=== PATIENT | female | born 1935 | race Caucasian/White ===

== ENCOUNTER 2016-07-26 16:39 | Inpatient (IN) | payer MEDICARE, MEDICAID ==
[2016-07-26] MEDS ORDERED: NS 0.9% 1000 ML* 2,000 ML IV ONE (16:58)
[2016-07-26] MEDS ORDERED: Piperac/Tazob 3.375 gm in NS* 3.375 GM/100 ML BAG IVPB ONE (17:02)
[2016-07-26] MEDS ORDERED: Levofloxacin 750 MG IVPREMIX(* 750 MG/150 ML BAG IVPB ONE (17:03)
[2016-07-26] MEDS ORDERED: Albuterol/Ipratropium NEB.SOL* Albuterol 2.5 MG/Ipratropium 0.5 MG 3 ML INH ONE (17:03)
[2016-07-26] MEDS ORDERED: methylPREDNISolone SOD SUCC* 125 MG 2 ML VIAL IV ONE (17:04)
[2016-07-26 17:19] LABS: Hematocrit 42 % (35-47); Hemoglobin 13.8 g/dl (12.0-16.0); Mean Corpuscular HGB Conc 33 g/dl (31-36); Mean Corpuscular Hemoglobin 29 pg (27-31); Mean Corpuscular Volume 88 fL (80-97); Mean Platelet Volume 7 um3 (7.4-10.4); Red Blood Count 4.77 10^6/ul (4.0-5.4); Red Cell Distribution Width 17 % (10.5-15)
[2016-07-26 17:37] LABS: Albumin 3.2 g/dL (3.2-5.2); BUN/Creatinine Ratio 30.3 (8-20); C Reactive Protein 29.61 mg/L (< 5.00); Calcium 9.5 mg/dL (8.6-10.3); EGFR African American 93.5 (>60); EGFR Non-African American 72.7 (>60); Globulin 3.6 g/dL (2-4); Potassium 4.7 mmol/L (3.5-5.0); Total Bilirubin 0.4 mg/dL (0.2-1.0); Total Protein 6.8 g/dL (6.4-8.9)
[2016-07-26 17:38] LABS: Troponin I 0.65 ng/mL (<0.04)
--- NOTE | 2016-07-26 17:51 | RAD ---
INDICATION: Short of breath. Aspiration pneumonia. COMPARISON: Chest x-ray August 17, 2015 TECHNIQUE: An AP portable view obtained at 1735 hours is submitted. FINDINGS: Bones/Soft Tissues: There are no acute bony findings. There are old left-sided rib fractures with pleural reactive change Cardiomediastinal: The cardiomediastinal silhouette is normal. Lungs: There are chronic interstitial changes biapical scarring. There are no acute infiltrates Pleura: There are no pleural effusions. Other: None IMPRESSION: CHRONIC LUNG FINDINGS WITH APICAL SCARRING. NO ACTIVE DISEASE.
--- NOTE | 2016-07-26 18:21 | ED ---
Victor Hugo Mendiola Billy, scribed for Helio Lomax MD on 07/26/16 at 1748 . Shortness of Breath - HPI Summary HPI Summary: Patient is an 81 year-old female with a history of COPD coming to [facility] presenting with worsening cough and SOB today. History not obtained from the patient due to dementia, level 5 caveat. Family states that the patient lives at the senior living, where she receives regular breathing treatments three times a day. They report that the patient began to have cold-like symptoms earlier this week. Patient was able to state that her "lungs hurt." Family also reports that the patient aspirated at lunch today. - History of Current Complaint Chief Complaint: EDShortnessOfBreath Time Seen by Provider: 07/26/16 16:49 Hx Obtained From: Family/Day Care Home Provider Hx From Patient Unobtainable Due To: Dementia - Level 5 caveat. Onset/Duration: Gradual Onset, Lasting Days, Worse Since - today Timing: Constant Current Severity: Moderate Dyspnea At: Rest Aggrevating Factors: Nothing Alleviating Factors: Nothing Associated Signs & Symptoms: Cough (Nonproductive) - Allergy/Home Medications Allergies/Adverse Reactions: Allergies Allergy/AdvReac Type Severity Reaction Status Date / Time No Known Allergies Allergy Verified 08/17/15 16:36 Home Medications: Home Medications Acetaminophen SUPP* [Tylenol Supp*] 650 mg PA Q4H PRN 07/26/16 [History Confirmed 07/26/16] Bisacodyl SUPP* [Dulcolax Supp*] 10 mg PA DAILY PRN 07/26/16 [History Confirmed 07/26/16] Budesonide NEB* [Pulmicort NEB*] 0.5 mg INH BID 07/26/16 [History Confirmed 02/03] Cholecalciferol [Vitamin D3] 50,000 unit PO MONTHLY 07/26/16 [History Confirmed 07/26/16] Ipratropium 0.5MG/2.5ML NEB* [Atrovent 0.5 MG NEB.REKHA*] 0.5 mg INH TID PRN 07/26 [History Confirmed 07/26/16] Mirtazapine TAB* [Remeron TAB*] 15 mg PO DAILY 07/26/16 [History Confirmed 07/26] Omeprazole CAP* [Prilosec CAP* 20 MG] 20 mg PO DAILY 07/26/16 [History Confirmed 07/26/16] Ondansetron ODT TAB* [Zofran 4 MG Odt TAB*] 4 mg PO BID PRN 07/26/16 [History Confirmed 07/26/16] Psyllium ANDRES* [Metamucil ANDRES*] 1 pkt PO BID 07/26/16 [History Confirmed 07/26/16 ] Tiotropium CAP.INH* [Spiriva CAP.INH*] 1 cap.inh INH DAILY 07/26/16 [History Confirmed 07/26/16] guaiFENesin ER TAB [Mucinex*] 600 mg PO BID 07/26/16 [History Confirmed 07/26/16 ] PMH/Surg Hx/FS Hx/Imm Hx Respiratory History: Reports: Hx Chronic Obstructive Pulmonary Disease (COPD) - home O2 -- per daughter takes it off, Hx Pneumonia Musculoskeletal History: Reports: Hx Arthritis - in bilat hands Sensory History: Reports: Hx Contacts or Glasses, Hx Hearing Problem - hard of hearing Opthamlomology History: Reports: Hx Contacts or Glasses Neurological History: Reports: Hx Dementia - Cancer History Hx Chemotherapy: No Hx Radiation Therapy: No Hx Palliative Cancer Treatment: No - Surgical History Hx Anesthesia Reactions: No Infectious Disease History: No - Family History Known Family History: Positive: Unknown - Not obtained; level 5 caveat. - Social History Alcohol Use: None Hx Substance Use: No Substance Use Type: Reports: None Hx Tobacco Use: Yes Smoking Status (MU): Former Smoker Type: Cigarettes Amount Used/How Often: 4-5 cigs day Length of Time of Smoking/Using Tobacco: 60 Have You Smoked in the Last Year: No Review of Systems Negative: Fever Positive: Shortness Of Breath, Cough All Other Systems Reviewed And Are Negative: No - Comments Additional Review of Systems Comments: Full ROS not obtained; level 5 caveat. Physical Exam - Summary Physical Exam Summary: The patient is well-nourished in no acute distress and in no acute pain. The skin is warm and dry and skin color reflects adequate perfusion. No cyanosis. Decreased skin turgor. HEENT: The head is normocephalic and atraumatic. The pupils are equal and reactive. The conjunctivae are clear and without drainage. Nares are patent and without drainage. Mouth reveals dry mucous membranes and the throat is without erythema and exudate. The external ears are intact. The ear canals are patent and without drainage. The tympanic membranes are intact. Neck is supple with full range of motion and non-tender. There are no carotid bruits. There is no neck vein distension. Respiratory: Chest is non-tender. Moderate respiratory distress. Decreased breath sounds with diffuse wheezing. O2 sat 92-93%. Supraventricular retractions. Cardiovascular: Heart rate is tachycardic. Positive murmur. There is no peripheral edema and pulses are symmetrical and equal. Abdomen: The abdomen is soft and non-tender. There are normal bowel sounds heard in all four quadrants and there is no organomegaly palpated. Musculoskeletal: There is no back pain noted. Extremities are non-tender with full range of motion. There is good capillary refill <3 seconds. There is no peripheral edema or calf tenderness elicited. Neurological: Patient is alert but not oriented, history of dementia. Psychiatric: Level 5 caveat. Triage Information Reviewed: Yes Vital Signs On Initial Exam: Initial Vitals BP 110/71 07/26/16 16:52 Vital Signs Reviewed: Yes Completion Of Physical Exam Limited Due To: Level 5 - Saw Coma Scale Coma Scale Total: 15 Diagnostics - Vital Signs Vital Signs Temp Pulse Resp BP Pulse Ox 07/26/16 17:30 118 35 123/72 99 07/26/16 17:23 99.3 F 111 34 109/65 92 07/26/16 17:22 91 07/26/16 17:19 99.3 F 111 34 109/65 92 07/26/16 17:17 109 35 93 07/26/16 17:00 111 36 109/65 93 07/26/16 16:53 116 91 07/26/16 16:52 110/71 - Laboratory Lab Results: Lab Results 07/26/16 07/26/16 07/26/16 Range/Units 17:10 17:10 17:10 WBC 15.0 H (3.5-10.8) 10^3/ul RBC 4.77 (4.0-5.4) 10^6/ul Hgb 13.8 (12.0-16.0) g/dl Hct 42 (35-47) % MCV 88 (80-97) fL MCH 29 (27-31) pg MCHC 33 (31-36) g/dl RDW 17 H (10.5-15) % Plt Count 259 (150-450) 10^3/ul MPV 7 L (7.4-10.4) um3 Neut % (Auto) 91.7 H (38-83) % Lymph % (Auto) 1.9 L (25-47) % [place] % (Auto) 6.3 (1-9) % Eos % (Auto) 0 (0-6) % Baso % (Auto) 0.1 (0-2) % Absolute Neuts (auto) 13.7 H (1.5-7.7) 10^3/ul Absolute Lymphs (auto) 0.3 L (1.0-4.8) 10^3/ul Absolute Monos (auto) 0.9 H (0-0.8) 10^3/ul Absolute Eos (auto) 0 (0-0.6) 10^3/ul Absolute Basos (auto) 0 (0-0.2) 10^3/ul Absolute Nucleated RBC 0 10^3/ul Nucleated RBC % 0 INR (Anticoag Therapy) 0.88 L (0.89-1.11) APTT 27.0 (26.0-36.3) seconds Sodium 131 L (133-145) mmol/L Potassium 4.7 (3.5-5.0) mmol/L Chloride 96 L (101-111) mmol/L Carbon Dioxide 29 (22-32) mmol/L Anion Gap 6 (2-11) mmol/L BUN 23 (6-24) mg/dL Creatinine 0.76 (0.51-0.95) mg/dL Est GFR ( Amer) 93.5 (>60) Est GFR (Non-Af Amer) 72.7 (>60) BUN/Creatinine Ratio 30.3 H (8-20) Glucose 168 H (70-100) mg/dL Lactic Acid (0.5-2.0) mmol/L Calcium 9.5 (8.6-10.3) mg/dL Total Bilirubin 0.40 (0.2-1.0) mg/dL AST 16 (13-39) U/L ALT 11 (7-52) U/L Alkaline Phosphatase 109 H (34-104) U/L Troponin I 0.65 H* (<0.04) ng/mL C-Reactive Protein 29.61 H (< 5.00) mg/L B-Natriuretic Peptide ( - 100) pg/mL Total Protein 6.8 (6.4-8.9) g/dL Albumin 3.2 (3.2-5.2) g/dL Globulin 3.6 (2-4) g/dL Albumin/Globulin Ratio 0.9 L (1-3) 07/26/16 07/26/16 Range/Units 17:10 17:10 WBC (3.5-10.8) 10^3/ul RBC (4.0-5.4) 10^6/ul Hgb (12.0-16.0) g/dl Hct (35-47) % MCV (80-97) fL MCH (27-31) pg MCHC (31-36) g/dl RDW (10.5-15) % Plt Count (150-450) 10^3/ul MPV (7.4-10.4) um3 Neut % (Auto) (38-83) % Lymph % (Auto) (25-47) % [place] % (Auto) (1-9) % Eos % (Auto) (0-6) % Baso % (Auto) (0-2) % Absolute Neuts (auto) (1.5-7.7) 10^3/ul Absolute Lymphs (auto) (1.0-4.8) 10^3/ul Absolute Monos (auto) (0-0.8) 10^3/ul Absolute Eos (auto) (0-0.6) 10^3/ul Absolute Basos (auto) (0-0.2) 10^3/ul Absolute Nucleated RBC 10^3/ul Nucleated RBC % INR (Anticoag Therapy) (0.89-1.11) APTT (26.0-36.3) seconds Sodium (133-145) mmol/L Potassium (3.5-5.0) mmol/L Chloride (101-111) mmol/L Carbon Dioxide (22-32) mmol/L Anion Gap (2-11) mmol/L BUN (6-24) mg/dL Creatinine (0.51-0.95) mg/dL Est GFR ( Amer) (>60) Est GFR (Non-Af Amer) (>60) BUN/Creatinine Ratio (8-20) Glucose (70-100) mg/dL Lactic Acid 2.1 H* (0.5-2.0) mmol/L Calcium (8.6-10.3) mg/dL Total Bilirubin (0.2-1.0) mg/dL AST (13-39) U/L ALT (7-52) U/L Alkaline Phosphatase (34-104) U/L Troponin I (<0.04) ng/mL C-Reactive Protein (< 5.00) mg/L B-Natriuretic Peptide 517 H ( - 100) pg/mL Total Protein (6.4-8.9) g/dL Albumin (3.2-5.2) g/dL Globulin (2-4) g/dL Albumin/Globulin Ratio (1-3) Result Diagrams: 07/26/16 17:10 07/26/16 17:10 Lab Statement: Any lab studies that have been ordered have been reviewed, and results considered in the medical decision making process. - Radiology CXR Radiology Interpretation Completed By: Radiologist - CHRONIC LUNG FINDINGS WITH APICAL SCARRING. NO ACTIVE DISEASE. - EKG 1703 Cardiac Rate: Tachycardia - 109 bpm EKG Rhythm: Sinus Tachycardia ST Segment: Normal EKG Interpretation: Artifact. Poor R-wave progression. Re-Evaluation - Re-Evaluation First Eval Re-Evaluation Time: 18:00 Change: Improved Comment: Vitals improved. Discussed options with family. They agree to admit the patient to the hospitalist services. Course/Dx - Course Assessment/Plan: 81 y/o female coming to [facility] presenting with SOB today. CXR shows no acute findings. EKG shows sinus tachycardia, no ST elevation, poor R- wave progression, and artifact. Prior records reviewed. Case discussed with hospitalist, who accepted the patient for admission to their services. - Diagnoses Differential Diagnosis/HQI/PQRI: Positive: Bronchitis, CHF, VT, Pneumonia, Other - aspiration pneumonia, elevated troponin-demand ischemia Provider Diagnoses: Acute dyspnea, Aspiration pneumonia, Sepsis, Elevated troponin - Physician Notifications Discussed Care of Patient With: Dr. Mejia (hospitalist) @ [id number]: accepts admission. - Critical Care Time Critical Care Time: 30-74 min Discharge - Discharge Plan Condition: Stable Disposition: ADMITTED TO [facility] Referrals: Janina Robison MD [Primary Care Provider] - The documentation as recorded by the Victor Hugo baltazar Billy accurately reflects the service I personally performed and the decisions made by me, Helio Lomax MD.
[2016-07-26] MEDS ORDERED: Bisacodyl SUPP* 10 MG SUPP PR PRN (18:41)
[2016-07-26] MEDS ORDERED: Acetaminophen SUPP* 650 MG SUPP PR PRN (18:41)
[2016-07-26] MEDS ORDERED: PROCHLORPERAZINE INJ 5 MG/ML 2 ML VIAL IV PRN (18:44)
[2016-07-26] MEDS ORDERED: Levofloxacin 500 MG IVPREMIX(* 500 MG/100 ML BAG IVPB SCH (19:00)
[2016-07-26] MEDS ORDERED: Aspirin SUPP* 300 MG PR ONE (19:12)
[2016-07-26 20:17] LABS: Urine Bacteria Absent (Absent); Urine Bilirubin Negative (Negative); Urine Glucose 1+(50 mg/dL) (Negative); Urine Nitrite Negative (Negative)
[2016-07-26] MEDS: NS 0.9% 1000 ML* 1,000 ML IV SCH (20:36)
[2016-07-26] MEDS: Heparin VIAL(*) 5000 UNITS/ML VIAL (FIVE THOUSAND) SUBCUT SCH (21:15)
[2016-07-26] MEDS: Albuterol 2.5 MG/3 ML NEB.SOL* (0.083%) INH SCH ×2 (21:51→22:18)
[2016-07-26] MEDS: Budesonide NEB* 0.5 MG/2 ML NEB.SOLN INH SCH (22:18)
--- NOTE | 2016-07-26 23:21 | HP ---
HISTORY AND PHYSICAL: DATE OF ADMISSION: 07/26/16 TIME OF EVALUATION: 6:10 p.m. PRIMARY CARE PROVIDER: Dr. Robison. CHIEF COMPLAINT: "She is coughing a lot" as per daughter. HISTORY OF PRESENT ILLNESS: Ms. Alegria is an 80-year-old lady with past medical history of dementia, COPD, that resides at [facility] and has had cough for a week. Most of the history is obtained from the patient's daughter at bedside due to the patient's dementia. She says the patient started to have sporadic cough 1 week ago and she was being observed at [facility], but since yesterday, this has progressed with shortness of breath, moist cough without expectoration. Today, during lunch, the patient also choked and the daughter feels that she probably aspirated and after that her respiratory status became even worse. The daughter denies fever or chills, but did notice that her mother was weaker. She also describes a problem with constipation including an episode of infection in the past. She states that the patient's appetite is poor, but this is not new to her. PAST MEDICAL HISTORY: 1. Dementia. 2. COPD. 3. Admission in June 2015 with Klebsiella pneumoniae septicemia of unknown source. 4. Episode of urinary retention and citrobacter UTI on the same admission. MEDICATION LIST: 1. Acetaminophen suppository 650 mg per rectum q.4 hours p.r.n. pain or fever. 2. Bisacodyl suppository 10 mg per rectum daily as needed for constipation. 3. Pulmicort nebulizer 0.5 mg b.i.d. 4. Vitamin D3 50,000 units p.o. monthly. 5. Vitamin B12 1000 mcg intramuscular monthly. 6. Mucinex 600 mg p.o. b.i.d. 7. Ipratropium 0.5 mg inhaled t.i.d. as needed for shortness of breath. 8. Mirtazapine 15 mg p.o. daily. 9. Omeprazole 20 mg p.o. daily. 10. Ondansetron ODT 4 mg p.o. b.i.d. as needed for nausea. 11. Metamucil 1 packet p.o. b.i.d. 12. Spiriva 1 capsule inhaled daily. ALLERGIES: No known drug allergy. FAMILY HISTORY: I am unable to obtain from the patient, but was reviewed from the records and is noncontributory. SOCIAL HISTORY: Unable to obtain from the patient, but as per record she is a former smoker. No history of alcohol intake. She currently lives at [facility]. Surrogate decision maker is her daughter, Lilli Loredo, phone number is [phone]. REVIEW OF SYSTEMS: I am unable to obtain due to the patient's dementia. PHYSICAL EXAMINATION GENERAL: The patient is an elderly, frail lady sitting up in the ED stretcher in no acute distress. VITAL SIGNS: Temperature 99.3, heart rate is 115, respiratory rate is 24, O2 saturation was in the 80s in the emergency room, but during my evaluation it was 92% on Vapotherm with a FiO2 of 40% on 40 L, blood pressure is 112/60. HEENT: Pupils are equal. Moist mucous membranes. LUNGS: Breath sounds bilaterally with diffuse rhonchi. CVS: Normal S1, S2. Regular rate and rhythm, tachycardic. ABDOMEN: Soft, nontender, nondistended. Bowel sounds are present. EXTREMITIES: No edema. NEURO: She is alert, awake, and oriented to self and place. She is able to move all four extremities and follow commands. DIAGNOSTIC STUDIES/LAB DATA: The patient had a CBC that showed a WBC of 15, hemoglobin of 13.8, hematocrit 42, platelets of 259 with 91% neutrophils. INR was 0.88. Chemistry showed a sodium of 131, potassium 4.7, chloride of 96, bicarb of 29, BUN of 23, creatinine of 0.76, glucose of 168, lactic acid is 2.1 , calcium 9.5. Total bilirubin of 0.4, AST of 16, ALT of 11, alk phos of 109. Troponin of 0.65. CRP of 29.6. BNP 517. Influenza rapid test was negative. Chest x-ray showed chronic lung findings with apical scarring, but no active disease. EKG done on July 26 at 17:03 shows sinus tachycardia at 109 beats per minute with flat T waves in V5 and V6. Those were new when compared to her prior EKG from June 2015, but at that time, she did have ST depression on those same leads. ASSESSMENT AND PLAN: Ms. Alegria is an 81-year-old lady with past medical history of dementia and chronic obstructive pulmonary disease, who presented to the emergency room with complaints of cough and shortness of breath and found to have sepsis secondary to bronchitis. 1. Sepsis. The patient meets sepsis criteria with tachycardia, tachypnea, and leukocytosis. Her SOFA score is 2 and source appears to be bronchitis. 2. Chronic obstructive pulmonary disease exacerbation secondary to bronchitis. Influenza test was negative. The patient will be continued on levofloxacin. Cultures were already sent. We are going to continue bronchodilators and start steroids. 3. Acute hypoxemic respiratory failure. The patient was hypoxemic in the emergency room and she is now comfortable on Vapotherm at 40 L with FiO2 of 40% with oxygen saturation of 92% to 93%. She will be admitted to the intensive care unit for further management. 4. Elevated troponin. This likely represents increased demand in the setting of sepsis. The patient denies chest pain and she has minimal changes on her EKG. I am going to check an echocardiogram to look for wall motion abnormalities and we are going to trend her troponins. The patient is going to receive one dose of aspirin per rectum tonight, but if she is able to swallow in the morning, then we can switch her to oral aspirin. 5. Possible dysphagia. The patient's daughter described that she is on mechanical soft diet, but today she choked during lunch and probably aspirating. I am going to keep her n.p.o., no oral medications for now, and she will be seen by Speech Pathology in the morning. 6. Constipation. We will continue Dulcolax suppository as needed. 7. Code status. Discussed with the daughter. The patient is a do not resuscitate, do not intubate, and the MOLST form is in her chart. 8. DVT prophylaxis. The patient has a score of 3 on the DVT Prophylaxis Risk Assessment Guide, and she will be started on subcutaneous heparin. TIME SPENT: Approximately 60 minutes was spent with the patient and daughter interview, medical records review, physical examination to complete the admission; more than half of this time was spent [id number] with the patient and coordination of care. CC: Dr. Robison * [id number]/CPS #: [id number] KIERA
[2016-07-27] MEDS: Albuterol 2.5 MG/3 ML NEB.SOL* (0.083%) INH SCH ×6 (03:32→23:06)
[2016-07-27] MEDS: methylPREDNISolone SOD SUCC* 40 MG/ML VIAL IV SCH ×2 (05:36→16:09)
[2016-07-27] MEDS: Heparin VIAL(*) 5000 UNITS/ML VIAL (FIVE THOUSAND) SUBCUT SCH ×2 (05:36→13:43)
[2016-07-27] MEDS: NS 0.9% 1000 ML* 1,000 ML IV SCH (05:36)
[2016-07-27 06:02] LABS: Hematocrit 34 % (35-47); Hemoglobin 11.6 g/dl (12.0-16.0); Mean Corpuscular HGB Conc 34 g/dl (31-36); Mean Corpuscular Hemoglobin 30 pg (27-31); Mean Corpuscular Volume 88 fL (80-97); Mean Platelet Volume 7 um3 (7.4-10.4); Red Cell Distribution Width 16 % (10.5-15); White Blood Count 10.7 10^3/ul (3.5-10.8)
[2016-07-27 06:24] LABS: BUN/Creatinine Ratio 29.4 (8-20); Calcium 8.7 mg/dL (8.6-10.3); EGFR African American 106.3 (>60); EGFR Non-African American 82.6 (>60); Potassium 4.5 mmol/L (3.5-5.0)
[2016-07-27] MEDS: Budesonide NEB* 0.5 MG/2 ML NEB.SOLN INH SCH ×2 (08:34→19:44)
[2016-07-27] MEDS: Tiotropium CAP.INH* CAP.INH/18 MCG INH SCH (08:34)
[2016-07-27] MEDS ORDERED: Spiriva Inhaler DEVICE* 1 EACH DEVICE INH ONE (09:00)
[2016-07-27] MEDS ORDERED: NS 0.9% 1000 ML* 1,000 ML IV SCH (09:05)
--- NOTE | 2016-07-27 09:13 | PN ---
Subjective Date of Service: 07/27/16 Interval History: pt's MS appears at baseline. Dementia. Limited verbalization to a few words at at a time. stated that daughter present in the room was her mother. Objective Active Medications: Acetaminophen (Tylenol Supp*) 650 mg [place] Q4H PRN PRN Reason: FEVER/PAIN Albuterol (Ventolin 2.5 Mg/3 Ml Neb.Janette*) 2.5 mg INH Q4H [facility] Last Admin: 07/27/16 08:34 Dose: 2.5 mg Bisacodyl (Dulcolax Supp*) 10 mg [place] DAILY PRN PRN Reason: CONSTIPATION Budesonide (Pulmicort Neb*) 0.5 mg INH BID [facility] Last Admin: 07/27/16 08:34 Dose: 0.5 mg Heparin Sodium (Porcine) (Heparin Vial(*)) 5,000 units SUBCUT Q8HR [facility] Last Admin: 07/27/16 05:36 Dose: 5,000 units Levofloxacin/Dextrose (Levaquin 500 Mg Ivpremix(*)) 500 mg in 100 mls @ 100 mls /hr IVPB Q24H [facility] Sodium Chloride (Ns 0.9% 1000 Ml*) 1,000 mls @ 80 mls/hr IV PER RATE [facility] Methylprednisolone Sodium Succinate (Solu-Medrol*) 40 mg IV Q12H [facility] Last Admin: 07/27/16 05:36 Dose: 40 mg Prochlorperazine Edisylate (Compazine Inj*) 5 mg IV Q6H PRN PRN Reason: NAUSEA/VOMITING Tiotropium [place] (Spiriva Cap.Inh*) 1 cap INH DAILY [facility] Last Admin: 07/27/16 08:34 Dose: 1 cap Vital Signs 07/26/16 07/26/16 07/26/16 18:30 19:00 19:30 Temperature Pulse Rate 99 Respiratory 27 24 27 Rate Blood Pressure 112/60 103/56 99/57 (mmHg) O2 Sat by Pulse 80 Oximetry 07/26/16 07/26/16 07/26/16 20:00 20:03 20:09 Temperature 99.8 F 100.3 F Pulse Rate 98 126 Respiratory 24 22 32 Rate Blood Pressure 108/68 108/68 (mmHg) O2 Sat by Pulse 96 Oximetry 03/09/17 03/09/17 03/09/17 20:30 21:00 21:15 Temperature 99.8 F Pulse Rate 110 105 103 Respiratory 36 29 26 Rate Blood Pressure 128/70 99/62 98/48 (mmHg) O2 Sat by Pulse 97 94 96 Oximetry 07/26/16 07/26/16 07/26/16 21:31 21:45 22:00 Temperature Pulse Rate 100 100 99 Respiratory 20 21 19 Rate Blood Pressure 89/48 94/49 89/53 (mmHg) O2 Sat by Pulse 95 96 97 Oximetry 07/26/16 07/26/16 07/26/16 22:15 22:30 22:46 Temperature Pulse Rate 100 97 96 Respiratory 14 17 28 Rate Blood Pressure 86/54 93/50 90/48 (mmHg) O2 Sat by Pulse 96 97 95 Oximetry 07/26/16 07/26/16 07/26/16 22:50 23:00 23:01 Temperature Pulse Rate 96 96 Respiratory 25 20 24 Rate Blood Pressure 86/53 85/54 (mmHg) O2 Sat by Pulse 96 97 Oximetry 07/26/16 07/26/16 07/26/16 23:15 23:30 23:45 Temperature Pulse Rate 95 98 92 Respiratory 21 16 23 Rate Blood Pressure 94/60 94/59 88/56 (mmHg) O2 Sat by Pulse 97 98 96 Oximetry 07/27/16 07/27/16 07/27/16 00:00 00:01 00:15 Temperature 98.4 F Pulse Rate 95 95 Respiratory 20 18 21 Rate Blood Pressure 82/61 97/54 (mmHg) O2 Sat by Pulse 97 97 Oximetry 07/27/16 07/27/16 07/27/16 00:30 01:00 01:55 Temperature Pulse Rate 89 Respiratory 18 20 Rate Blood Pressure 105/65 106/56 (mmHg) O2 Sat by Pulse 96 Oximetry 07/27/16 07/27/16 07/27/16 02:00 03:00 03:02 Temperature Pulse Rate 91 88 Respiratory 21 20 22 Rate Blood Pressure 92/50 84/56 (mmHg) O2 Sat by Pulse 97 93 Oximetry 07/27/16 07/27/16 07/27/16 03:32 04:00 05:00 Temperature 98.3 F Pulse Rate 89 87 Respiratory 26 19 20 Rate Blood Pressure 88/68 (mmHg) O2 Sat by Pulse 94 94 Oximetry 07/27/16 07/27/16 07/27/16 05:16 05:48 06:00 Temperature Pulse Rate 91 85 Respiratory 22 20 13 Rate Blood Pressure 98/56 104/53 (mmHg) O2 Sat by Pulse 95 96 Oximetry 07/27/16 07/27/16 07/27/16 07:00 07:51 07:57 Temperature 99.6 F Pulse Rate 84 Respiratory 20 17 Rate Blood Pressure 95/52 (mmHg) O2 Sat by Pulse 95 Oximetry 07/27/16 07/27/16 08:00 08:39 Temperature Pulse Rate 82 82 Respiratory 19 12 Rate Blood Pressure 98/46 (mmHg) O2 Sat by Pulse 95 96 Oximetry Oxygen Devices in Use Now: High Flow Nasal Cannula - at 40 L flow, 30% Fi02. Appearance: 81 yo F in nAd, alert, disoriented Eyes: No Scleral Icterus, PERRLA Ears/Nose/Mouth/Throat: NL Teeth, Lips, Gums, Mucous Membranes Moist Neck: NL Appearance and Movements; NL JVP, Trachea Midline Respiratory: Symmetrical Chest Expansion and Respiratory Effort, - - crackles at b/l bases Cardiovascular: NL Sounds; No Murmurs; No JVD, RRR Abdominal: - - distended, tympanic, soft, NT, BS+ Lymphatic: No Cervical Adenopathy Extremities: No Edema, No Clubbing, Cyanosis Skin: No Rash or Ulcers, No Nodules or Sclerosis Neurological: - - no focal deficit, limited verbalization due to dementia Result Diagrams: 07/27/16 05:43 07/27/16 05:43 Additional Lab and Data: Lab Results 07/26/16 07/26/16 07/26/16 Range/Units 17:10 17:10 17:10 WBC 15.0 H (3.5-10.8) 10^3/ul RBC 4.77 (4.0-5.4) 10^6/ul Hgb 13.8 (12.0-16.0) g/dl Hct 42 (35-47) % MCV 88 (80-97) fL MCH 29 (27-31) pg MCHC 33 (31-36) g/dl RDW 17 H (10.5-15) % Plt Count 259 (150-450) 10^3/ul MPV 7 L (7.4-10.4) um3 Neut % (Auto) 91.7 H (38-83) % Lymph % (Auto) 1.9 L (25-47) % [place] % (Auto) 6.3 (1-9) % Eos % (Auto) 0 (0-6) % Baso % (Auto) 0.1 (0-2) % Absolute Neuts (auto) 13.7 H (1.5-7.7) 10^3/ul Absolute Lymphs (auto) 0.3 L (1.0-4.8) 10^3/ul Absolute Monos (auto) 0.9 H (0-0.8) 10^3/ul Absolute Eos (auto) 0 (0-0.6) 10^3/ul Absolute Basos (auto) 0 (0-0.2) 10^3/ul Absolute Nucleated RBC 0 10^3/ul Nucleated RBC % 0 INR (Anticoag Therapy) 0.88 L (0.89-1.11) APTT 27.0 (26.0-36.3) seconds Sodium 131 L (133-145) mmol/L Potassium 4.7 (3.5-5.0) mmol/L Chloride 96 L (101-111) mmol/L Carbon Dioxide 29 (22-32) mmol/L Anion Gap 6 (2-11) mmol/L BUN 23 (6-24) mg/dL Creatinine 0.76 (0.51-0.95) mg/dL Est GFR ( Amer) 93.5 (>60) Est GFR (Non-Af Amer) 72.7 (>60) BUN/Creatinine Ratio 30.3 H (8-20) Glucose 168 H (70-100) mg/dL Lactic Acid (0.5-2.0) mmol/L Calcium 9.5 (8.6-10.3) mg/dL Total Bilirubin 0.40 (0.2-1.0) mg/dL AST 16 (13-39) U/L ALT 11 (7-52) U/L Alkaline Phosphatase 109 H (34-104) U/L Troponin I 0.65 H* (<0.04) ng/mL C-Reactive Protein 29.61 H (< 5.00) mg/L B-Natriuretic Peptide ( - 100) pg/mL Total Protein 6.8 (6.4-8.9) g/dL Albumin 3.2 (3.2-5.2) g/dL Globulin 3.6 (2-4) g/dL Albumin/Globulin Ratio 0.9 L (1-3) 07/26/16 07/26/16 Range/Units 17:10 17:10 WBC (3.5-10.8) 10^3/ul RBC (4.0-5.4) 10^6/ul Hgb (12.0-16.0) g/dl Hct (35-47) % MCV (80-97) fL MCH (27-31) pg MCHC (31-36) g/dl RDW (10.5-15) % Plt Count (150-450) 10^3/ul MPV (7.4-10.4) um3 Neut % (Auto) (38-83) % Lymph % (Auto) (25-47) % [place] % (Auto) (1-9) % Eos % (Auto) (0-6) % Baso % (Auto) (0-2) % Absolute Neuts (auto) (1.5-7.7) 10^3/ul Absolute Lymphs (auto) (1.0-4.8) 10^3/ul Absolute Monos (auto) (0-0.8) 10^3/ul Absolute Eos (auto) (0-0.6) 10^3/ul Absolute Basos (auto) (0-0.2) 10^3/ul Absolute Nucleated RBC 10^3/ul Nucleated RBC % INR (Anticoag Therapy) (0.89-1.11) APTT (26.0-36.3) seconds Sodium (133-145) mmol/L Potassium (3.5-5.0) mmol/L Chloride (101-111) mmol/L Carbon Dioxide (22-32) mmol/L Anion Gap (2-11) mmol/L BUN (6-24) mg/dL Creatinine (0.51-0.95) mg/dL Est GFR ( Amer) (>60) Est GFR (Non-Af Amer) (>60) BUN/Creatinine Ratio (8-20) Glucose (70-100) mg/dL Lactic Acid 2.1 H* (0.5-2.0) mmol/L Calcium (8.6-10.3) mg/dL Total Bilirubin (0.2-1.0) mg/dL AST (13-39) U/L ALT (7-52) U/L Alkaline Phosphatase (34-104) U/L Troponin I (<0.04) ng/mL C-Reactive Protein (< 5.00) mg/L B-Natriuretic Peptide 517 H ( - 100) pg/mL Total Protein (6.4-8.9) g/dL Albumin (3.2-5.2) g/dL Globulin (2-4) g/dL Albumin/Globulin Ratio (1-3) Microbiology and Other Data: Microbiology 07/26/16 18:16 Nasal Screen MRSA (PCR)(FAY) - Final Nasal Mrsa Negative 07/26/16 18:16 Influenza Types A,B Antigen (FAY) - Final Nasal Specimen received for Influenza A/B Molecular testing Assess/Plan/Problems-Billing Assessment: 81 yo F with h/o dementia presents with h/o cough worsened by an episode of chocking during meal - Patient Problems (1) Aspiration into airway Comment: with sepsis and SOFA score of 2 at admission suspect aspiration pneumonia, although CXR showed no infiltrate. Will add Flagyl, cont Levaquin. (2) COPD exacerbation Comment: cont solu Medrol, still with significant acute hypoxemic respiratory failure due to aspiration and COPD exacerbation. (3) Dementia Comment: MS at baseline, disoriented (4) Dysphagia Comment: passed swallow eval for thin liquids and mech soft solids (5) DVT prophylaxis Comment: heparin sc (6) DNR (do not resuscitate)
[2016-07-27] MEDS: metroNIDAZOLE IV 500 MG/100ML* 500 MG/100 ML BAG IVPB SCH ×2 (09:51→18:05)
--- NOTE | 2016-07-27 11:48 | ECHO ---
Patient: ANN TAVARES [facility] Rec#: [id number] : 1935 Date: 07/27/2016 Age: 81y Height: 162.6 cm / 64.0 in Weight: 48.1 kg / 106.0 lbs Sex: F BSA: 1.5 Room#: ICU 2 Admit Date#: 07/26/2016 Type: Inpatient Referring: Dana Rader MD Reading: Nikita Jones MD Manager Data Warehousing: Amarilis Burton RN RDCS CC: Janina Robison Transthoracic Echocardiogram Indication: Shortness of breath, elevated troponin levels BP: 98/46 HR: 80 Rhythm: NSR Findings History: COPD, former smoker, hip fracture, dementia, pneumonia Technical Comments: The study is technically limited due to the patient's history of COPD. The study is technically limited due to the patient's smoking history. The study was technically limited due to the patient's inability to lay in the left lateral decubitus position. Completed at 0930. Left Ventricle: The left ventricular chamber size is decreased. Septal wall hypertrophy is observed. Global left ventricular wall motion and contractility are within normal limits. The left ventricle appears hyperdynamic.Mild increase in LVOT and aortic velocities c/w the hyperdynamic state. Mild turbulence in the LVOT and chordal LUCIA but no significant obstruction. The LV is relatively small and may be underfilled. The estimated ejection fraction is greater than 65%. Abnormal left ventricular diastolic filling is observed, consistent with impaired relaxation. Left Atrium: The left atrial chamber size is normal. Right Ventricle: The right ventricle wall thickness is mildly increased. The right ventricular cavity size is normal. The right ventricular global systolic function is normal. Right Atrium: The right atrial cavity size is normal. Aortic Valve: The aortic valve structure is not well visualized. The aortic valve leaflets are mildly thickened. There is no evidence of aortic regurgitation. There is no evidence of aortic stenosis. Mitral Valve: The mitral valve leaflets are mildly thickened. There is mild mitral regurgitation. There is no evidence of mitral stenosis. Tricuspid Valve: The tricuspid valve leaflets are normal. There is mild to moderate tricuspid regurgitation. There is evidence of mild to moderate pulmonary hypertension. There is no tricuspid stenosis. Pulmonic Valve: The pulmonic valve structure is not well visualized. There is a trace pulmonic regurgitation. There is no pulmonic stenosis. Pericardium: There is no significant pericardial effusion. Aorta: There is no dilatation of the ascending aorta. The aortic arch is not well visualized. The aortic root is normal in size. Pulmonary Artery: The main pulmonary artery is not well visualized. Venous: The inferior vena cava appears normal in size. There is an approximate 50% respiratory change in the inferior vena cava dimension. Summary: There was not any prior study for comparison. Conclusions The study was technically limited due to the patient's inability to lay in the left lateral decubitus position. The left ventricle appears hyperdynamic.Mild increase in LVOT and aortic velocities c/w the hyperdynamic state. Mild turbulence in the LVOT and chordal LUCIA but no significant obstruction. The LV is relatively small and may be underfilled. The estimated ejection fraction is greater than 65%. Abnormal left ventricular diastolic filling is observed, consistent with impaired relaxation. The right ventricle wall thickness is mildly increased. There is mild mitral regurgitation. There is mild to moderate tricuspid regurgitation. There is evidence of mild to moderate pulmonary hypertension. Measurements Name Value Normal Range RVDdMajor (2D) 2.2 cm (2.2 - 4.4) RVAW (2D) 0.6 cm (0.2 - 0.5) RAd ISD 4CH 4.2 cm (3.4 - 4.9) RA (A4C)W 2.9 cm (2.9 - 4.6) IVSd (2D) 1.1 cm (0.6 - 1) LVPWd (2D) 1 cm (0.6 - 1) LVIDd (2D) 3.2 cm (3.6 - 5.4) LVIDs (2D) 2.3 cm - LV FS (2D) 28 % (25 - 45) Aortic Annulus 1.6 cm (1.4 - 2.6) Ao root diameter (2D) 2.7 cm (2.1 - 3.5) Ascending Ao 2.4 cm (2.1 - 3.4) LA dimension (AP) 2D 2.3 cm (2.3 - 3.8) LAd ISD 4CH 4.7 cm (2.9 - 5.3) LA ISD 4CH W 2.8 cm (2.5 - 4.5) Name Value Normal Range LA ESV SP 4CH (A/L) 30 ml - LA ESV SP 2CH (A/L) 25 ml - LA ESV BP (A/L) 28 ml - LA ESV BP (A/L) index 19 ml/m2 - LA ESV SP 4CH (MOD) 28 ml - LA ESV SP 2CH (MOD) 24 ml - Name Value Normal Range MV E-wave Vmax 0.73 m/sec - MV deceleration time 298 msec - MV A-wave Vmax 1.2 m/sec - MV E:A ratio 0.6 ratio - LV septal e' Vmax 0.9 m/sec - LV lateral e' Vmax 0.7 m/sec - LV E:e' septal ratio 8.1 ratio - LV E:e' lateral ratio 10.4 ratio - Name Value Normal Range AV Vmax 1.4 m/sec - AV VTI 31.4 cm - AV peak gradient 8 mmHg - AV mean gradient 5 mmHg - LVOT Vmax 1.3 m/sec - LVOT VTI 26.8 cm - LVOT peak gradient 6 mmHg - LVOT mean gradient 4 mmHg - Name Value Normal Range TR Vmax 3.1 m/sec - TR peak gradient 38 mmHg - RAP 8 mmHg - RVSP 46 mmHg - IVC diameter 1.9 cm - Name Value Normal Range PV Vmax 0.76 m/sec -
[2016-07-27] MEDS: Levofloxacin 500 MG IVPREMIX(* 500 MG/100 ML BAG IVPB SCH (17:06)
[2016-07-28] MEDS: Heparin VIAL(*) 5000 UNITS/ML VIAL (FIVE THOUSAND) SUBCUT SCH ×4 (00:03→21:40)
[2016-07-28] MEDS: metroNIDAZOLE IV 500 MG/100ML* 500 MG/100 ML BAG IVPB SCH ×3 (03:37→19:30)
[2016-07-28] MEDS: Albuterol 2.5 MG/3 ML NEB.SOL* (0.083%) INH SCH ×5 (05:15→19:21)
[2016-07-28 05:28] LABS: Hematocrit 34 % (35-47); Hemoglobin 11.3 g/dl (12.0-16.0); Mean Corpuscular HGB Conc 33 g/dl (31-36); Mean Corpuscular Hemoglobin 29 pg (27-31); Mean Corpuscular Volume 89 fL (80-97); Mean Platelet Volume 7 um3 (7.4-10.4); Red Blood Count 3.83 10^6/ul (4.0-5.4); Red Cell Distribution Width 17 % (10.5-15); White Blood Count 9.2 10^3/ul (3.5-10.8)
[2016-07-28 05:44] LABS: BUN/Creatinine Ratio 32.2 (8-20); Calcium 8.8 mg/dL (8.6-10.3); EGFR African American 125.2 (>60); EGFR Non-African American 97.3 (>60); Potassium 4.1 mmol/L (3.5-5.0)
[2016-07-28] MEDS: methylPREDNISolone SOD SUCC* 40 MG/ML VIAL IV SCH ×2 (05:57→19:13)
[2016-07-28] MEDS: Budesonide NEB* 0.5 MG/2 ML NEB.SOLN INH SCH ×2 (07:17→19:21)
[2016-07-28] MEDS: Tiotropium CAP.INH* CAP.INH/18 MCG INH SCH (07:17)
--- NOTE | 2016-07-28 14:08 | PN ---
Subjective Date of Service: 07/28/16 Interval History: HOSPITALIST PROGRESS NOTE Patient seen and examined at bedside. She feels better today. Less dyspnea, moist cough still present, but unable to expectorate. Has been on RA this AM. Family History: Unchanged from Admission Social History: Unchanged from Admission Past Medical History: Unchanged from Admission Objective Active Medications: Acetaminophen (Tylenol Supp*) 650 mg [place] Q4H PRN PRN Reason: FEVER/PAIN Albuterol (Ventolin 2.5 Mg/3 Ml Neb.Janette*) 2.5 mg INH Q6H [facility] Last Admin: 07/28/16 12:52 Dose: 2.5 mg Bisacodyl (Dulcolax Supp*) 10 mg [place] DAILY PRN PRN Reason: CONSTIPATION Budesonide (Pulmicort Neb*) 0.5 mg INH BID [facility] Last Admin: 07/28/16 07:17 Dose: 0.5 mg Heparin Sodium (Porcine) (Heparin Vial(*)) 5,000 units SUBCUT Q8HR [facility] Last Admin: 07/28/16 05:57 Dose: 5,000 units Levofloxacin/Dextrose (Levaquin 500 Mg Ivpremix(*)) 500 mg in 100 mls @ 100 mls /hr IVPB Q24H [facility] Last Admin: 07/27/16 17:06 Dose: 100 mls/hr Metronidazole/Sodium Chloride (Flagyl 500 Mg Ivpb*) 500 mg in 100 mls @ 100 mls /hr IVPB Q8H [facility] Last Admin: 07/28/16 09:20 Dose: 100 mls/hr Methylprednisolone Sodium Succinate (Solu-Medrol*) 40 mg IV Q12H [facility] Last Admin: 07/28/16 05:57 Dose: 40 mg Prochlorperazine Edisylate (Compazine Inj*) 5 mg IV Q6H PRN PRN Reason: NAUSEA/VOMITING Tiotropium [place] (Spiriva Cap.Inh*) 1 cap INH DAILY [facility] Last Admin: 07/28/16 07:17 Dose: 1 cap Vital Signs 07/28/16 07/28/16 07/28/16 11:34 12:00 12:55 Temperature 98.3 F Pulse Rate 77 79 Respiratory 20 18 Rate Blood Pressure 94/52 (mmHg) O2 Sat by Pulse 93 92 Oximetry Oxygen Devices in Use Now: None Appearance: Pleasantly confused elderly lady sitting up in bed in NAD. Eyes: No Scleral Icterus Ears/Nose/Mouth/Throat: Mucous Membranes Moist Neck: Trachea Midline Respiratory: Symmetrical Chest Expansion and Respiratory Effort, - - BS+ bilaterally with scattered rhonchi Cardiovascular: RRR - Normal S1 and S2 Abdominal: NL Sounds; No Tenderness; No Distention Extremities: No Edema Neurological: - - AAOx1 (self), DEL TORO Lines/Tubes/Other Access: Clean, Dry and Intact Peripheral IV Nutrition: Taking PO's Result Diagrams: 07/28/16 05:14 07/28/16 05:14 Assess/Plan/Problems-Billing Assessment: Mrs. Alegria is an 81 yo F with PMH of dementia, COPD, who presented to ED with h/o cough worsened by an episode of choking during meal. - Patient Problems (1) Sepsis Comment: - Present on admission. - Sepsis criteria included tachycardia, tachypnea, and leukocytosis. SOFA score was 2. - Resolved. (2) Acute hypoxemic respiratory failure Comment: - Secondary to bronchitis. - Initially required Vapotherm, but has been on RA today with good SO2. (3) Bronchitis Comment: - Likely started as a viral infection and progressed with a bacterial one. - Responding well to Levofloxacin and Metronidazole. - Continue steroids and bronchodilators. (4) Aspiration into airway Code(s): T17.908A - UNSP FB IN RESP TRACT, PART UNSP CAUSING OTH INJURY, INIT SNOMED Code(s): 917036082 Comment: - Patient choked on food prior to admission and likely has a component of aspiration pneumonitis, but not necessarily pneumonia. - Continue steroids and antibiotics. (5) COPD exacerbation Comment: - Secondary to above. - Continue steroids and bronchodilators. (6) Dysphagia Comment: - Passed swallow eval - continue thin liquids and mech soft solids. (7) Elevated troponin Comment: - Secondary to demand ischemia associated with sepsis. - Echo showed EF>65% and hyperdynamic LV (likely secondary to dehydration). (8) Dementia Comment: - MS at baseline - continue supportive care. (9) DVT prophylaxis Comment: - SQ heparin. (10) DNR (do not resuscitate) Status and Disposition: Inpatient. Transfer to medical floor. Daughter updated at bedside.
[2016-07-28] MEDS: Levofloxacin 500 MG IVPREMIX(* 500 MG/100 ML BAG IVPB SCH (19:00)
[2016-07-29] MEDS: Albuterol 2.5 MG/3 ML NEB.SOL* (0.083%) INH SCH ×4 (00:52→19:25)
[2016-07-29] MEDS: metroNIDAZOLE IV 500 MG/100ML* 500 MG/100 ML BAG IVPB SCH ×3 (04:07→19:08)
[2016-07-29] MEDS: methylPREDNISolone SOD SUCC* 40 MG/ML VIAL IV SCH ×2 (06:39→17:42)
[2016-07-29] MEDS: Heparin VIAL(*) 5000 UNITS/ML VIAL (FIVE THOUSAND) SUBCUT SCH ×3 (06:39→21:55)
[2016-07-29] MEDS: Tiotropium CAP.INH* CAP.INH/18 MCG INH SCH (07:13)
[2016-07-29] MEDS: Budesonide NEB* 0.5 MG/2 ML NEB.SOLN INH SCH ×2 (07:14→19:25)
--- NOTE | 2016-07-29 14:49 | PN ---
Subjective Date of Service: 07/29/16 Interval History: HOSPITALIST PROGRESS NOTE Patient seen and examined at bedside. She offers on complaints, denies dyspnea. Moist cough still present, unable to expectorate. Family History: Unchanged from Admission Social History: Unchanged from Admission Past Medical History: Unchanged from Admission Objective Active Medications: Acetaminophen (Tylenol Supp*) 650 mg [place] Q4H PRN PRN Reason: FEVER/PAIN Albuterol (Ventolin 2.5 Mg/3 Ml Neb.Janette*) 2.5 mg INH Q6H [facility] Last Admin: 07/29/16 13:05 Dose: 2.5 mg Bisacodyl (Dulcolax Supp*) 10 mg [place] DAILY PRN PRN Reason: CONSTIPATION Budesonide (Pulmicort Neb*) 0.5 mg INH BID [facility] Last Admin: 07/29/16 07:14 Dose: 0.5 mg Heparin Sodium (Porcine) (Heparin Vial(*)) 5,000 units SUBCUT Q8HR [facility] Last Admin: 07/29/16 06:39 Dose: 5,000 units Levofloxacin/Dextrose (Levaquin 500 Mg Ivpremix(*)) 500 mg in 100 mls @ 100 mls /hr IVPB Q24H [facility] Last Admin: 07/28/16 19:00 Dose: 100 mls/hr Metronidazole/Sodium Chloride (Flagyl 500 Mg Ivpb*) 500 mg in 100 mls @ 100 mls /hr IVPB Q8H [facility] Last Admin: 07/29/16 11:04 Dose: 100 mls/hr Methylprednisolone Sodium Succinate (Solu-Medrol*) 40 mg IV Q12H [facility] Last Admin: 07/29/16 06:39 Dose: 40 mg Prochlorperazine Edisylate (Compazine Inj*) 5 mg IV Q6H PRN PRN Reason: NAUSEA/VOMITING Tiotropium [place] (Spiriva Cap.Inh*) 1 cap INH DAILY [facility] Last Admin: 07/29/16 07:13 Dose: 1 cap Vital Signs 07/29/16 07/29/16 07/29/16 00:00 00:52 04:00 Temperature 98 F 97.8 F Pulse Rate 79 80 Respiratory 22 Rate Blood Pressure 112/57 (mmHg) O2 Sat by Pulse 98 95 Oximetry 07/29/16 07/29/16 07/29/16 07:16 08:00 13:08 Temperature 100.0 F Pulse Rate 77 78 Respiratory 17 18 17 Rate Blood Pressure (mmHg) O2 Sat by Pulse 97 96 97 Oximetry Oxygen Devices in Use Now: None Appearance: Pleasantly confused lady lying in bed in NAD. Eyes: No Scleral Icterus Ears/Nose/Mouth/Throat: Mucous Membranes Moist Neck: Trachea Midline Respiratory: Symmetrical Chest Expansion and Respiratory Effort, - - BS+ bilaterally coarse with no added sounds Cardiovascular: RRR - Normal S1 and S2 Abdominal: NL Sounds; No Tenderness; No Distention Extremities: No Edema Neurological: - - AAOx1 (self), [place] Lines/Tubes/Other Access: Clean, Dry and Intact Peripheral IV Nutrition: Taking PO's Result Diagrams: 07/28/16 05:14 07/28/16 05:14 Assess/Plan/Problems-Billing Assessment: Mrs. Alegria is an 81 yo F with PMH of dementia, COPD, who presented to ED with h/o cough worsened by an episode of choking during meal. - Patient Problems (1) Sepsis Comment: - Present on admission. - Sepsis criteria included tachycardia, tachypnea, and leukocytosis. SOFA score was 2. - Resolved. (2) Acute hypoxemic respiratory failure Comment: - Secondary to bronchitis. - Initially required Vapotherm, but continues to be on RA today with good SO2. (3) Bronchitis Comment: - Likely started as a viral infection and progressed with a bacterial one. - Responding well to Levofloxacin and Metronidazole. - Continue steroids and bronchodilators. (4) Aspiration into airway Code(s): T17.908A - UNSP FB IN RESP TRACT, PART UNSP CAUSING OTH INJURY, INIT SNOMED Code(s): 716337540 Comment: - Patient choked on food prior to admission and likely has a component of aspiration pneumonitis, but not necessarily pneumonia. - Continue steroids and antibiotics. (5) COPD exacerbation Comment: - Secondary to above. - Continue steroids and bronchodilators. (6) Dysphagia Comment: - Passed swallow eval - continue thin liquids and mech soft solids. (7) Elevated troponin Comment: - Secondary to demand ischemia associated with sepsis. - Echo showed EF>65% and hyperdynamic LV (likely secondary to dehydration). (8) Dementia Comment: - MS at baseline - continue supportive care. (9) DVT prophylaxis Comment: - SQ heparin. (10) DNR (do not resuscitate) Status and Disposition: Inpatient. Still in ICU as MOF. Anticipate d/c in the next 1-2 days.
[2016-07-29] MEDS: Levofloxacin 500 MG IVPREMIX(* 500 MG/100 ML BAG IVPB SCH (17:42)
[2016-07-30] MEDS: metroNIDAZOLE IV 500 MG/100ML* 500 MG/100 ML BAG IVPB SCH ×3 (02:12→19:41)
[2016-07-30] MEDS: Albuterol 2.5 MG/3 ML NEB.SOL* (0.083%) INH SCH ×4 (04:42→19:48)
[2016-07-30] MEDS: Heparin VIAL(*) 5000 UNITS/ML VIAL (FIVE THOUSAND) SUBCUT SCH ×3 (05:56→21:45)
[2016-07-30] MEDS: Budesonide NEB* 0.5 MG/2 ML NEB.SOLN INH SCH ×2 (07:45→19:48)
[2016-07-30] MEDS: Tiotropium CAP.INH* CAP.INH/18 MCG INH SCH (07:45)
[2016-07-30] MEDS: predniSONE TAB* 20 MG PO SCH (10:31)
--- NOTE | 2016-07-30 16:39 | PN ---
Subjective Date of Service: 07/30/16 Interval History: HOSPITALIST PROGRESS NOTE Patient seen and examined at bedside. As per daughter patient is still congested and with moist cough, unable to expectorate. Needed supplemental O2 again overnight due to worsening dyspnea. Family History: Unchanged from Admission Social History: Unchanged from Admission Past Medical History: Unchanged from Admission Objective Active Medications: Acetaminophen (Tylenol Supp*) 650 mg [place] Q4H PRN PRN Reason: FEVER/PAIN Albuterol (Ventolin 2.5 Mg/3 Ml Neb.Janette*) 2.5 mg INH Q6H [facility] Last Admin: 07/30/16 13:22 Dose: 2.5 mg Bisacodyl (Dulcolax Supp*) 10 mg [place] DAILY PRN PRN Reason: CONSTIPATION Budesonide (Pulmicort Neb*) 0.5 mg INH BID [facility] Last Admin: 07/30/16 07:45 Dose: 0.5 mg Heparin Sodium (Porcine) (Heparin Vial(*)) 5,000 units SUBCUT Q8HR [facility] Last Admin: 07/30/16 15:34 Dose: 5,000 units Levofloxacin/Dextrose (Levaquin 500 Mg Ivpremix(*)) 500 mg in 100 mls @ 100 mls /hr IVPB Q24H [facility] Last Admin: 07/29/16 17:42 Dose: 100 mls/hr Metronidazole/Sodium Chloride (Flagyl 500 Mg Ivpb*) 500 mg in 100 mls @ 100 mls /hr IVPB Q8H [facility] Last Admin: 07/30/16 10:30 Dose: 100 mls/hr Prednisone (Deltasone Tab*) 40 mg PO DAILY [facility] Last Admin: 07/30/16 10:31 Dose: 40 mg Prochlorperazine Edisylate (Compazine Inj*) 5 mg IV Q6H PRN PRN Reason: NAUSEA/VOMITING Tiotropium [place] (Spiriva Cap.Inh*) 1 cap INH DAILY [facility] Last Admin: 07/30/16 07:45 Dose: 1 cap Vital Signs 07/30/16 07/30/16 07/30/16 04:33 07:50 13:24 Temperature 97.5 F Pulse Rate 83 76 92 Respiratory 20 20 20 Rate Blood Pressure 149/86 (mmHg) O2 Sat by Pulse 95 99 99 Oximetry Oxygen Devices in Use Now: Nasal Cannula - 2 liters Appearance: Elderly lady sitting up in bed in NAD. Eyes: No Scleral Icterus Ears/Nose/Mouth/Throat: Mucous Membranes Moist Neck: Trachea Midline Respiratory: Symmetrical Chest Expansion and Respiratory Effort, - - BS+ bilaterally with scattered rhonchi Cardiovascular: RRR - Normal S1 and S2 Abdominal: NL Sounds; No Tenderness; No Distention Extremities: No Edema Neurological: - - AAOx1 (self only), DEL TORO Lines/Tubes/Other Access: Clean, Dry and Intact Peripheral IV Nutrition: Taking PO's Result Diagrams: 07/28/16 05:14 07/28/16 05:14 Assess/Plan/Problems-Billing Assessment: Mrs. Alegria is an 81 yo F with PMH of dementia, COPD, who presented to ED with h/o cough worsened by an episode of choking during meal. - Patient Problems (1) Sepsis Comment: - Present on admission. - Sepsis criteria included tachycardia, tachypnea, and leukocytosis. SOFA score was 2. - Resolved. (2) Acute hypoxemic respiratory failure Comment: - Secondary to bronchitis. - Initially required Vapotherm, was on RA, but now requires 2 liters of supplemental O2 again. (3) Bronchitis Comment: - Likely started as a viral infection and progressed with a bacterial one. - Responding well to Levofloxacin #5 and Metronidazole #4. - Continue steroids and bronchodilators. (4) Aspiration into airway Code(s): T17.908A - UNSP FB IN RESP TRACT, PART UNSP CAUSING OTH INJURY, INIT SNOMED Code(s): 968915421 Comment: - Patient choked on food prior to admission and likely has a component of aspiration pneumonitis, but not necessarily pneumonia. - Continue steroids and antibiotics. (5) COPD exacerbation Comment: - Secondary to above. - Continue steroids and bronchodilators. (6) Dysphagia Comment: - Passed swallow eval - continue thin liquids and pureed solids. (7) Elevated troponin Comment: - Secondary to demand ischemia associated with sepsis. - Echo showed EF>65% and hyperdynamic LV (likely secondary to dehydration). (8) Dementia Comment: - MS at baseline - continue supportive care. (9) DVT prophylaxis Comment: - SQ heparin. (10) DNR (do not resuscitate) Status and Disposition: Inpatient. Daughter updated at bedside. Anticipate d/c in the next 1-2 days.
[2016-07-30] MEDS: Levofloxacin 500 MG IVPREMIX(* 500 MG/100 ML BAG IVPB SCH (18:01)
[2016-07-31] MEDS: metroNIDAZOLE IV 500 MG/100ML* 500 MG/100 ML BAG IVPB SCH ×3 (02:30→19:35)
[2016-07-31] MEDS: Albuterol 2.5 MG/3 ML NEB.SOL* (0.083%) INH SCH ×4 (05:26→19:38)
[2016-07-31] MEDS: Heparin VIAL(*) 5000 UNITS/ML VIAL (FIVE THOUSAND) SUBCUT SCH ×3 (05:56→22:07)
[2016-07-31] MEDS: Tiotropium CAP.INH* CAP.INH/18 MCG INH SCH (07:58)
[2016-07-31] MEDS: Budesonide NEB* 0.5 MG/2 ML NEB.SOLN INH SCH ×2 (07:58→20:14)
[2016-07-31] MEDS: predniSONE TAB* 20 MG PO SCH (09:26)
--- NOTE | 2016-07-31 16:38 | PN ---
Subjective Date of Service: 07/31/16 Interval History: HOSPITALIST PROGRESS NOTE Patient seen and examined at bedside. She offers no complaints, but as per aide PO intake was minimal today. Still sounds congested. Family History: Unchanged from Admission Social History: Unchanged from Admission Past Medical History: Unchanged from Admission Objective Active Medications: Acetaminophen (Tylenol Supp*) 650 mg [place] Q4H PRN PRN Reason: FEVER/PAIN Albuterol (Ventolin 2.5 Mg/3 Ml Neb.Janette*) 2.5 mg INH [id number] AWAKE [facility] Last Admin: 07/31/16 13:54 Dose: 2.5 mg Bisacodyl (Dulcolax Supp*) 10 mg [place] DAILY PRN PRN Reason: CONSTIPATION Budesonide (Pulmicort Neb*) 0.5 mg INH BID [facility] Last Admin: 07/31/16 07:58 Dose: 0.5 mg Heparin Sodium (Porcine) (Heparin Vial(*)) 5,000 units SUBCUT Q8HR [facility] Last Admin: 07/31/16 15:24 Dose: 5,000 units Levofloxacin/Dextrose (Levaquin 500 Mg Ivpremix(*)) 500 mg in 100 mls @ 100 mls /hr IVPB Q24H [facility] Last Admin: 07/30/16 18:01 Dose: 100 mls/hr Metronidazole/Sodium Chloride (Flagyl 500 Mg Ivpb*) 500 mg in 100 mls @ 100 mls /hr IVPB Q8H [facility] Last Admin: 07/31/16 09:27 Dose: 100 mls/hr Prednisone (Deltasone Tab*) 40 mg PO DAILY [facility] Last Admin: 07/31/16 09:26 Dose: 40 mg Prochlorperazine Edisylate (Compazine Inj*) 5 mg IV Q6H PRN PRN Reason: NAUSEA/VOMITING Tiotropium [place] (Spiriva Cap.Inh*) 1 cap INH DAILY [facility] Last Admin: 07/31/16 07:58 Dose: 1 cap Vital Signs 07/31/16 07/31/16 07/31/16 08:01 08:05 14:01 Pulse Rate 78 78 76 Respiratory 18 18 20 Rate Blood Pressure (mmHg) O2 Sat by Pulse 98 96 96 Oximetry Oxygen Devices in Use Now: Nasal Cannula - 2 liters Appearance: Elderly lady lying in bed in NAD. Eyes: No Scleral Icterus Ears/Nose/Mouth/Throat: Mucous Membranes Moist Neck: Trachea Midline Respiratory: Symmetrical Chest Expansion and Respiratory Effort, - - BS+ bilaterally with scattered rhonchi. Cardiovascular: RRR - Normal S1 and S2 Abdominal: NL Sounds; No Tenderness; No Distention Extremities: No Edema Neurological: - - AAOx1 (self), [place] T[place]O Lines/Tubes/Other Access: Clean, Dry and Intact Peripheral IV Nutrition: Taking PO's Result Diagrams: 07/28/16 05:14 07/28/16 05:14 Assess/Plan/Problems-Billing Assessment: Mrs. Alegria is an 81 yo F with PMH of dementia, COPD, who presented to ED with h/o cough worsened by an episode of choking during meal. - Patient Problems (1) Sepsis Comment: - Present on admission. - Sepsis criteria included tachycardia, tachypnea, and leukocytosis. SOFA score was 2. - Resolved. (2) Acute hypoxemic respiratory failure Comment: - Secondary to bronchitis. - Initially required Vapotherm, was on RA, but now requires 2 liters of supplemental O2 again. (3) Bronchitis Comment: - Likely started as a viral infection and progressed with a bacterial one (and possible aspiration). - Responding well to Levofloxacin #6 and Metronidazole #5. - Continue steroids and bronchodilators. - Improving slowly. (4) Aspiration into airway Code(s): T17.908A - UNSP FB IN RESP TRACT, PART UNSP CAUSING OTH INJURY, INIT SNOMED Code(s): 969035908 Comment: - Patient choked on food prior to admission and likely has a component of aspiration pneumonitis, but not necessarily pneumonia. - Continue steroids and antibiotics. (5) COPD exacerbation Comment: - Secondary to above. - Continue steroids and bronchodilators. (6) Dysphagia Comment: - Passed swallow eval - continue thin liquids and pureed solids. (7) Elevated troponin Comment: - Secondary to demand ischemia associated with sepsis. - Echo showed EF>65% and hyperdynamic LV (likely secondary to dehydration). (8) Dementia Comment: - MS at baseline - continue supportive care. (9) DVT prophylaxis Comment: - SQ heparin. (10) DNR (do not resuscitate) Status and Disposition: Inpatient. Daughter called and updated at bedside. Anticipate d/c in the next 1- 2 days.
[2016-07-31] MEDS: Levofloxacin 500 MG IVPREMIX(* 500 MG/100 ML BAG IVPB SCH (17:58)
[2016-08-01] MEDS: Albuterol 2.5 MG/3 ML NEB.SOL* (0.083%) INH SCH ×4 (01:40→19:24)
[2016-08-01] MEDS: metroNIDAZOLE IV 500 MG/100ML* 500 MG/100 ML BAG IVPB SCH ×3 (01:44→18:10)
[2016-08-01] MEDS: Heparin VIAL(*) 5000 UNITS/ML VIAL (FIVE THOUSAND) SUBCUT SCH ×3 (05:14→22:26)
[2016-08-01] MEDS: Tiotropium CAP.INH* CAP.INH/18 MCG INH SCH (07:19)
[2016-08-01] MEDS: Budesonide NEB* 0.5 MG/2 ML NEB.SOLN INH SCH ×2 (07:19→19:24)
[2016-08-01] MEDS: predniSONE TAB* 20 MG PO SCH (10:21)
--- NOTE | 2016-08-01 18:57 | PN ---
Subjective Date of Service: 08/01/16 Interval History: . Interviewed and examined patient at bedside; Discussed case with Dr. Rader ; Reviewed previous notes and radiology results; Family History: Unchanged from Admission Social History: Unchanged from Admission Past Medical History: Unchanged from Admission Objective Active Medications: . Acetaminophen (Tylenol Supp*) 650 mg [place] Q4H PRN PRN Reason: FEVER/PAIN Albuterol (Ventolin 2.5 Mg/3 Ml Neb.Janette*) 2.5 mg INH [id number] AWAKE [facility] Last Admin: 08/01/16 13:14 Dose: 2.5 mg Bisacodyl (Dulcolax Supp*) 10 mg [place] DAILY PRN PRN Reason: CONSTIPATION Budesonide (Pulmicort Neb*) 0.5 mg INH BID [facility] Last Admin: 08/01/16 07:19 Dose: 0.5 mg Heparin Sodium (Porcine) (Heparin Vial(*)) 5,000 units SUBCUT Q8HR [facility] Last Admin: 08/01/16 15:06 Dose: 5,000 units Metronidazole/Sodium Chloride (Flagyl 500 Mg Ivpb*) 500 mg in 100 mls @ 100 mls /hr IVPB Q8H [facility] Last Admin: 08/01/16 18:10 Dose: 100 mls/hr Levofloxacin/Dextrose (Levaquin 500 Mg Ivpremix(*)) 500 mg in 100 mls @ 100 mls /hr IVPB 2000 [facility] Prednisone (Deltasone Tab*) 40 mg PO DAILY [facility] Last Admin: 08/01/16 10:21 Dose: 40 mg Prochlorperazine Edisylate (Compazine Inj*) 5 mg IV Q6H PRN PRN Reason: NAUSEA/VOMITING Tiotropium [place] (Spiriva Cap.Inh*) 1 cap INH DAILY [facility] Last Admin: 08/01/16 07:19 Dose: 1 cap . Vital Signs 07/31/16 07/31/16 08/01/16 19:44 20:00 00:11 Temperature Pulse Rate 71 79 Respiratory 20 20 Rate Blood Pressure 110/65 (mmHg) O2 Sat by Pulse 99 95 95 Oximetry 08/01/16 08/01/16 08/01/16 07:22 07:56 08:00 Temperature 97.5 F Pulse Rate 82 88 Respiratory 18 22 16 Rate Blood Pressure 131/79 (mmHg) O2 Sat by Pulse 99 95 99 Oximetry Oxygen Devices in Use Now: Nasal Cannula - 2 liters Appearance: NAD Eyes: No Scleral Icterus Ears/Nose/Mouth/Throat: Clear Oropharnyx Neck: Trachea Midline Respiratory: Symmetrical Chest Expansion and Respiratory Effort, Clear to Percussion Cardiovascular: NL Sounds; No Murmurs; No JVD Abdominal: NL Sounds; No Tenderness; No Distention Lymphatic: No Cervical Adenopathy Extremities: No Edema Skin: No Rash or Ulcers, No Nodules or Sclerosis Lines/Tubes/Other Access: Clean, Dry and Intact Peripheral IV Nutrition: Taking PO's Result Diagrams: 07/28/16 05:14 07/28/16 05:14 Additional Lab and Data: . Microbiology and Other Data: Microbiology 07/26/16 18:16 Nasal Screen MRSA (PCR)(FAY) - Final Nasal Mrsa Negative 07/26/16 18:16 Influenza Types A,B Antigen (FAY) - Final Nasal Specimen received for Influenza A/B Molecular testing Assess/Plan/Problems-Billing Assessment: Mrs. Alegria is an 81 yo F with PMH of dementia, COPD, who presented to ED with h/o cough worsened by an episode of choking during meal. Current Medications: - Acetaminophen (Tylenol Supp*) 650 mg [place] Q4H PRN FEVER/PAIN - Albuterol (Ventolin 2.5 Mg/3 Ml Neb.Janette*) 2.5 mg INH [id number] AWAKE [facility] - Bisacodyl (Dulcolax Supp*) 10 mg [place] DAILY PRN CONSTIPATION - Budesonide (Pulmicort Neb*) 0.5 mg INH BID [facility] - Heparin Sodium (Porcine) (Heparin Vial(*)) 5,000 units SUBCUT Q8HR [facility] - Metronidazole/Sodium Chloride (Flagyl 500 Mg Ivpb*) 500 mg in 100 mls @ 100 mls/hr IVPB Q8H [facility] - Levofloxacin/Dextrose (Levaquin 500 Mg Ivpremix(*)) 500 mg in 100 mls @ 100 mls/hr IVPB 2000 [facility] - Prednisone (Deltasone Tab*) 40 mg PO DAILY [facility] - Prochlorperazine Edisylate (Compazine Inj*) 5 mg IV Q6H PRN NAUSEA/VOMITING - Tiotropium [place] (Spiriva Cap.Inh*) 1 cap INH DAILY [facility] - Patient Problems (1) Sepsis Current Visit: Yes Status: Acute Priority: High Comment: - Present on admission. - Sepsis criteria included tachycardia, tachypnea, and leukocytosis. SOFA score was 2. - Resolved. (2) Acute hypoxemic respiratory failure Current Visit: Yes Status: Acute Priority: High Code(s): J96.01 - ACUTE RESPIRATORY FAILURE WITH HYPOXIA Comment: - Secondary to bronchitis. - Initially required Vapotherm, and intermittent oxygen; - Now on Room air (3) Aspiration into airway Current Visit: Yes Status: Acute Code(s): T17.908A - UNSP FB IN RESP TRACT, PART UNSP CAUSING OTH INJURY, INIT Comment: - Patient choked on food prior to admission and likely has a component of aspiration pneumonitis, but not necessarily pneumonia. - Continue steroids and antibiotics. (4) Dysphagia Current Visit: Yes Status: Acute Priority: High Code(s): R13.10 - DYSPHAGIA, UNSPECIFIED Comment: - Passed swallow eval - continue thin liquids and pureed solids. (5) Bronchitis Current Visit: Yes Status: Acute Code(s): J40 - BRONCHITIS, NOT SPECIFIED ACUTE OR CHRONIC Comment: - Likely started as a viral infection and progressed with a bacterial one (and possible aspiration). - Responding well to Levofloxacin #6 and Metronidazole #5; stop both on August 02. - Continue steroids and bronchodilators. - Improving steadily (6) COPD exacerbation Current Visit: Yes Status: Acute Priority: High Code(s): J44.1 - CHRONIC OBSTRUCTIVE PULMONARY DISEASE W (ACUTE) EXACERBATION Comment: - Secondary to above. - Continue steroids and bronchodilators. (7) DNR (do not resuscitate) Current Visit: Yes Status: Acute Priority: High (8) Dementia Current Visit: Yes Status: Acute Priority: High Code(s): F03.90 - UNSPECIFIED DEMENTIA WITHOUT BEHAVIORAL DISTURBANCE Comment: - MS at baseline - continue supportive care. (9) Elevated troponin Current Visit: Yes Status: Acute Code(s): R74.8 - ABNORMAL LEVELS OF OTHER SERUM ENZYMES Comment: - Secondary to demand ischemia associated with sepsis. - Echo showed EF>65% and hyperdynamic LV (likely secondary to dehydration). (10) DVT prophylaxis Current Visit: Yes Status: Acute Priority: High Code(s): [id number] - Comment: - SQ heparin. Status and Disposition: Inpatient. Daughter called and updated at bedside. Anticipate d/c in the next 1- 2 days.
[2016-08-01] MEDS ORDERED: Levofloxacin 500 MG IVPREMIX(* 500 MG/100 ML BAG IVPB SCH (20:00)
[2016-08-02] MEDS: Albuterol 2.5 MG/3 ML NEB.SOL* (0.083%) INH SCH ×3 (01:05→13:24)
[2016-08-02] MEDS: metroNIDAZOLE IV 500 MG/100ML* 500 MG/100 ML BAG IVPB SCH ×2 (02:29→09:59)
[2016-08-02] MEDS: Heparin VIAL(*) 5000 UNITS/ML VIAL (FIVE THOUSAND) SUBCUT SCH (05:46)
[2016-08-02 06:23] VITALS: BP 126/70
[2016-08-02] MEDS: Tiotropium CAP.INH* CAP.INH/18 MCG INH SCH (07:58)
[2016-08-02] MEDS: Budesonide NEB* 0.5 MG/2 ML NEB.SOLN INH SCH (07:58)
--- NOTE | 2016-08-02 10:04 | PN ---
Hospitalist Progress Note . HOSPITALIST DISCHARGE NOTE: See dc instructions and summary by me. Patient stable for dc dc instructions reviewed with the patient at the bedside. DC patient to [facility] today.
[2016-08-02] MEDS: predniSONE TAB* 20 MG PO SCH (10:10)
--- NOTE | 2016-08-02 11:46 | DS ---
DISCHARGE/TRANSFER SUMMARY: DATE OF ADMISSION: 07/26/16 DATE OF TRANSFER: 08/02/16 Transfer is to [facility]. ATTENDING: At [place] [facility] assuming care of patient is Dr. Shannan Long. PRINCIPAL DISCHARGE DIAGNOSES: 1. Chronic obstructive pulmonary disease exacerbation and aspiration pneumonia causing acute hypoxemic respiratory failure - resolved with antibiotic course and IV steroid therapy. 2. Baseline chronic obstructive pulmonary disease. 3. Sepsis present on admission secondary to acute infectious presentation. 4. Elevated troponin consistent with non-ST elevation RI secondary to oxygen supply/demand mismatch secondary to metabolic burden of acute illness. SECONDARY DIAGNOSES/PAST MEDICAL HISTORY: 1. Dementia. 2. Recent admission with Klebsiella pneumonia, septicemia of unknown source. 3. Urinary retention and Citrobacter urinary tract infection this year. DISCHARGE MEDICATION REGIMEN: New: Prednisone taper with 30 separate 10 mg tabs to start at 50 mg by mouth daily for 2 days and then decrease by 10 mg every 2 days to use entire pill supply. Continue: 1. Acetaminophen 650 mg UT q.4 hours p.r.n. pain/fever. 2. Bisacodyl suppository 10 mg UT daily p.r.n. constipation. 3. Budesonide nebulizer 0.5 mg strength inhalation twice daily. 4. Tiotropium/Spiriva 1 capsule inhaled daily. 5. Cholecalciferol 50,000 units by mouth monthly. 6. Cyanocobalamin 1000 mcg IM monthly. 7. Ipratropium nebulizer 0.5 mg strength inhale 3 times daily as needed for shortness of breath. 8. Mirtazapine/Remeron 15 mg by mouth daily. 9. Omeprazole 20 mg by mouth daily. 10. Zofran ODT 4 mg by mouth twice daily. 11. Psyllium 1 packet by mouth twice daily. 12. Guaifenesin standard release 600 mg by mouth twice daily. HISTORY OF PRESENT ILLNESS AND HOSPITAL COURSE: Please see the H and P by Dr. Dana Mejia on July 26, 2016. In brief, Ms. Fofana is an 80-year-old female with past medical history of dementia, COPD and is a resident of [facility]. who has been coughing for greater than a week. The patient became progressively dyspneic with productive cough and had a choking episode that was deeply concerning for the family. There was concern about her aspirating and she came to the hospital and was admitted with respiratory failure and a discernible oxygen requirement. She was requiring Vapotherm 40 liters, FiO2 40 % with oxygenation of only 92%. There was a huge AA gradient and the patient was placed in the ICU initially. The patient did well with steroid treatment. She was treated with antibiotics. She was influenza negative. She had an echocardiogram to rule out cardiac etiology, but her left ventricular function was actually hyperdynamic with an ejection fraction of greater than 65%. The patient was rehydrated. Her labs were followed closely. She presented with an initial leukocytosis and this resolved with treatment. She did have some dilutional anemia during the hospitalization. The patient's troponins were in the non-ST elevation RI range, although this was not directly treated because there was presumed supply/demand mismatch secondary to the metabolic demands of her illness, though this was a legitimate non-ST elevation myocardial infarction. The patient's initial lactic acid was elevated. She met criteria for SIRS and sepsis by qSOFA, SOFA score. The patient is now stable. I should note she presented with the urinary tract infection with urine white blood cells greater than 3 (greater than 20 cells per high power field). This was concurrently treated with her antibiotic regimen, which included levofloxacin and Flagyl. The patient is back to her baseline, perhaps still mildly dyspneic , but though she will continue outpatient steroids for an additional 5 to 10 days. Further decisions will be made by Dr. Long and the medical staff at [facility]. Return to ED instructions were communicated through nursing to the [facility] Staff and are routine including the advise to come back to the emergency room for any worsening signs or symptoms included. but not limited to worsening shortness of breath, respiratory distress, high fevers, evidence of recurrent sepsis or any other worrisome signs that might rise. CONDITION AT DISCHARGE: Stable. CC: Dr. Shannan Long.* [id number]/[facility] #: [id number] MTDCristi
== END 2016-08-02 13:00 | DRG 871 ==
LOC: ED 16:39 → ICU 18:05 → MED 07-30 04:28
PROVIDERS: ADMIT Internal Medicine; ATTEND Internal Medicine
DX: A41.9 Sepsis, unspecified organism (principal); J69.0 Pneumonitis due to inhalation of food and vomit; J96.01 Acute respiratory failure with hypoxia; I21.4 Non-ST elevation (NSTEMI) myocardial infarction; J44.0 Chronic obstructive pulmonary disease with (acute) lower respiratory infection; J44.1 Chronic obstructive pulmonary disease with (acute) exacerbation; R13.10 Dysphagia, unspecified; N39.0 Urinary tract infection, site not specified; J44.9 Chronic obstructive pulmonary disease, unspecified; F03.90 Unspecified dementia, unspecified severity, without behavioral disturbance, psychotic disturbance, mood disturbance, and anxiety; M19.042 Primary osteoarthritis, left hand; M19.041 Primary osteoarthritis, right hand; K59.00 Constipation, unspecified; Z66 Do not resuscitate; D64.89 Other specified anemias; Z87.891 Personal history of nicotine dependence; Z87.440 Personal history of urinary (tract) infections; Z99.81 Dependence on supplemental oxygen
CPT/HCPCS: 36415; 71010; 80048; 80053; 81003; 81015; 83605; 83880; 84484; 85025; 85610; 85730; 86140; 87040; 87086; 87502; 87641; 93005; 93306; 94640; 94760; A9270-GY; J0780; J1644; J1956; J2543; J2920; J2930; J7512

== ENCOUNTER 2016-08-16 10:32 | Inpatient (IN) | payer MEDICARE, MEDICAID ==
[2016-08-16] MEDS ORDERED: NS 0.9% 1000 ML* 2,000 ML IV ONE (10:55)
[2016-08-16] MEDS ORDERED: methylPREDNISolone SOD SUCC* 125 MG 2 ML VIAL IV ONE (11:00)
[2016-08-16] MEDS ORDERED: Piperac/Tazob 3.375 gm in NS* 3.375 GM/100 ML BAG IVPB ONE (11:02)
[2016-08-16] MEDS ORDERED: Levofloxacin 750 MG IVPREMIX(* 750 MG/150 ML BAG IVPB ONE (11:03)
[2016-08-16] MEDS: Albuterol/Ipratropium NEB.SOL* Albuterol 2.5 MG/Ipratropium 0.5 MG 3 ML INH ONE ×2 (11:19→11:26)
[2016-08-16] MEDS ORDERED: Albuterol/Ipratropium NEB.SOL* Albuterol 2.5 MG/Ipratropium 0.5 MG 3 ML ONE (11:24)
[2016-08-16 11:27] LABS: Hematocrit 38 % (35-47); Hemoglobin 12.9 g/dl (12.0-16.0); Mean Corpuscular HGB Conc 34 g/dl (31-36); Mean Corpuscular Hemoglobin 30 pg (27-31); Mean Corpuscular Volume 89 fL (80-97); Mean Platelet Volume 8 um3 (7.4-10.4); Red Blood Count 4.28 10^6/ul (4.0-5.4); Red Cell Distribution Width 17 % (10.5-15); White Blood Count 10.4 10^3/ul (3.5-10.8)
[2016-08-16 11:40] LABS: Albumin 3.4 g/dL (3.2-5.2); BUN/Creatinine Ratio 29.6 (8-20); C Reactive Protein 46.67 mg/L (< 5.00); Calcium 9.4 mg/dL (8.6-10.3); EGFR African American 101.1 (>60); EGFR Non-African American 78.6 (>60); Globulin 3.3 g/dL (2-4); Potassium 3.8 mmol/L (3.5-5.0); Total Bilirubin 0.5 mg/dL (0.2-1.0); Total Protein 6.7 g/dL (6.4-8.9)
[2016-08-16 11:42] LABS: Troponin I 0.02 ng/mL (<0.04)
--- NOTE | 2016-08-16 12:22 | RAD ---
INDICATION: Shortness of breath and cough. COMPARISON: Comparison is made with a prior chest x-ray study from July 26, 2016. TECHNIQUE: A portable view of the chest was obtained. FINDINGS: Cardiac and mediastinal contours appear to be within normal limits. The lungs are underinflated. There is a small infiltrate at the left lung base. The lungs are otherwise clear. No pleural effusion is seen. IMPRESSION: SMALL LEFT BASILAR INFILTRATE.
--- NOTE | 2016-08-16 12:58 | ED ---
Victor Hugo Mendiola Billy, scribed for Helio Lomax MD on 08/16/16 at 1053 . Shortness of Breath - HPI Summary HPI Summary: Patient is an 81 year-old female with a history of COPD and dementia coming to [facility] with her daughter. Patient has a complaint of shortness of breath at rest for the last few days. She arrives to the ED by ambulance from [facility]. Patient and daughter report that she has been having wheezing and a productive cough. Denies any fevers, chills, or sinus congestion. Denies chest pain, palpitations, or lower extremity edema. She has had a normal appetite. Patient has had a flu shot within the last year. Patient is on 2L O2 at [place]. Daughter states that there is a viral infection going around at the detention. - History of Current Complaint Chief Complaint: EDShortnessOfBreath Time Seen by Provider: 08/16/16 10:41 Hx Obtained From: Patient, Family/Professor Of English Onset/Duration: Gradual Onset, Lasting Days, Still Present Timing: Constant Current Severity: Moderate Dyspnea At: Rest Aggrevating Factors: Nothing Alleviating Factors: Upright Position Associated Signs & Symptoms: Cough (Productive), Wheezing - Allergy/Home Medications Allergies/Adverse Reactions: Allergies Allergy/AdvReac Type Severity Reaction Status Date / Time No Known Allergies Allergy Verified 08/17/15 16:36 Home Medications: Home Medications Acetaminophen TAB* [Tylenol TAB*] 325 mg PO Q4H PRN 08/16/16 [History Confirmed 08/16/16] Acetaminophen TAB* [Tylenol TAB*] 650 mg PO TID PRN 08/16/16 [History Confirmed 08/16/16] Ipratropium 0.5MG/2.5ML NEB* [Atrovent 0.5 MG NEB.REKHA*] 0.5 mg INH TID 08/16/16 [History Confirmed 08/16/16] PMH/Surg Hx/FS Hx/Imm Hx Respiratory History: Reports: Hx Chronic Obstructive Pulmonary Disease (COPD) - home O2 -- per daughter takes it off, Hx Pneumonia Musculoskeletal History: Reports: Hx Arthritis - in bilat hands Sensory History: Reports: Hx Contacts or Glasses, Hx Hearing Problem - hard of hearing Opthamlomology History: Reports: Hx Contacts or Glasses Neurological History: Reports: Hx Dementia - Cancer History Hx Chemotherapy: No Hx Radiation Therapy: No Hx Palliative Cancer Treatment: No - Surgical History Surgery Procedure, Year, and Place: July 2015 Left hip ORIF Hx Anesthesia Reactions: No Infectious Disease History: No Infectious Disease History: Denies: Hx Clostridium Difficile, Hx Hepatitis, Hx Human Immunodeficiency Virus (HIV), Hx of Known/Suspected MRSA, Hx Shingles, Hx Tuberculosis, Hx Known/ Suspected VRE, Hx Known/Suspected VRSA, History Other Infectious Disease, Traveled Outside the [place] in Last 30 Days - Family History Known Family History: Positive: Unknown - Patient has dementia. - Social History Alcohol Use: None Hx Substance Use: No Substance Use Type: Reports: None Hx Tobacco Use: Yes Smoking Status (MU): Former Smoker Type: Cigarettes Amount Used/How Often: 4-5 cigs day Length of Time of Smoking/Using Tobacco: 60 Have You Smoked in the Last Year: No Review of Systems Negative: Fever, Chills Negative: Chest Pain Positive: Shortness Of Breath, Cough, Other - wheezing All Other Systems Reviewed And Are Negative: Yes Physical Exam - Summary Physical Exam Summary: The patient is an elderly, thin female in moderate distress. The skin is warm and dry and skin color reflects adequate perfusion. Decreased skin turgor. HEENT: The head is normocephalic and atraumatic. The pupils are equal and reactive. The conjunctivae are pale, clear, and without drainage. Nares are patent and without drainage. Mouth reveals dry mucous membranes and the throat is without erythema and exudate. The external ears are intact. The ear canals are patent and without drainage. The tympanic membranes are intact. Neck is supple with full range of motion and non-tender. There are no carotid bruits. There is no neck vein distension. Adventitious lung sounds. Respiratory: Chest is non-tender. Moderate respiratory distress. Positive supraclavicular retractions. Diffuse rhonchi and wheezing. 92-97% O2 Sat. Cardiovascular: Heart is regularly tachycardic. There is no murmur or rub auscultated. Abdomen: The abdomen is soft and non-tender. There are normal bowel sounds heard in all four quadrants and there is no organomegaly palpated. Musculoskeletal: There is no back pain noted. Extremities are non-tender with full range of motion. There is 3 second capillary refill. There is no calf tenderness elicited. Mild ankle edema. Neurological: Patient is alert and oriented to person, place and time. The patient has symmetrical motor strength in all four extremities. Psychiatric: The patient has an appropriate affect and does not exhibit any anxiety or depression. Triage Information Reviewed: Yes Vital Signs On Initial Exam: Initial Vitals Temp Pulse Resp BP Pulse Ox 98.7 F 101 14 116/54 94 08/16/16 10:33 08/16/16 10:33 08/16/16 10:33 08/16/16 10:33 08/16/16 10:33 Vital Signs Reviewed: Yes - Saw Coma Scale Coma Scale Total: 14 Diagnostics - Vital Signs Vital Signs Temp Pulse Resp BP Pulse Ox 08/16/16 10:42 14 08/16/16 10:33 98.7 F 101 14 116/54 94 - Laboratory Lab Results: Lab Results 08/16/16 08/16/16 08/16/16 Range/Units 11:00 11:00 11:00 WBC 10.4 (3.5-10.8) 10^3/ul RBC 4.28 (4.0-5.4) 10^6/ul Hgb 12.9 (12.0-16.0) g/dl Hct 38 (35-47) % MCV 89 (80-97) fL MCH 30 (27-31) pg MCHC 34 (31-36) g/dl RDW 17 H (10.5-15) % Plt Count 226 (150-450) 10^3/ul MPV 8 (7.4-10.4) um3 Neut % (Auto) 88.4 H (38-83) % Lymph % (Auto) 4.8 L (25-47) % Caroline % (Auto) 5.7 (1-9) % Eos % (Auto) 0.8 (0-6) % Baso % (Auto) 0.3 (0-2) % Absolute Neuts (auto) 9.2 H (1.5-7.7) 10^3/ul Absolute Lymphs (auto) 0.5 L (1.0-4.8) 10^3/ul Absolute Monos (auto) 0.6 (0-0.8) 10^3/ul Absolute Eos (auto) 0.1 (0-0.6) 10^3/ul Absolute Basos (auto) 0 (0-0.2) 10^3/ul Absolute Nucleated RBC 0 10^3/ul Nucleated RBC % 0 INR (Anticoag Therapy) 0.87 L (0.89-1.11) APTT 23.9 L (26.0-36.3) seconds Sodium 134 (133-145) mmol/L Potassium 3.8 (3.5-5.0) mmol/L Chloride 98 L (101-111) mmol/L Carbon Dioxide 32 (22-32) mmol/L Anion Gap 4 (2-11) mmol/L BUN 21 (6-24) mg/dL Creatinine 0.71 (0.51-0.95) mg/dL Est GFR ( Amer) 101.1 (>60) Est GFR (Non-Af Amer) 78.6 (>60) BUN/Creatinine Ratio 29.6 H (8-20) Glucose 190 H (70-100) mg/dL Lactic Acid (0.5-2.0) mmol/L Calcium 9.4 (8.6-10.3) mg/dL Total Bilirubin 0.50 (0.2-1.0) mg/dL AST 14 (13-39) U/L ALT 12 (7-52) U/L Alkaline Phosphatase 87 (34-104) U/L Troponin I 0.02 (<0.04) ng/mL C-Reactive Protein 46.67 H (< 5.00) mg/L B-Natriuretic Peptide ( - 100) pg/mL Total Protein 6.7 (6.4-8.9) g/dL Albumin 3.4 (3.2-5.2) g/dL Globulin 3.3 (2-4) g/dL Albumin/Globulin Ratio 1.0 (1-3) Influenza A (Rapid) (Negative) Influenza B (Rapid) (Negative) 08/16/16 08/16/16 08/16/16 Range/Units 11:00 11:00 11:33 WBC (3.5-10.8) 10^3/ul RBC (4.0-5.4) 10^6/ul Hgb (12.0-16.0) g/dl Hct (35-47) % MCV (80-97) fL MCH (27-31) pg MCHC (31-36) g/dl RDW (10.5-15) % Plt Count (150-450) 10^3/ul MPV (7.4-10.4) um3 Neut % (Auto) (38-83) % Lymph % (Auto) (25-47) % Caroline % (Auto) (1-9) % Eos % (Auto) (0-6) % Baso % (Auto) (0-2) % Absolute Neuts (auto) (1.5-7.7) 10^3/ul Absolute Lymphs (auto) (1.0-4.8) 10^3/ul Absolute Monos (auto) (0-0.8) 10^3/ul Absolute Eos (auto) (0-0.6) 10^3/ul Absolute Basos (auto) (0-0.2) 10^3/ul Absolute Nucleated RBC 10^3/ul Nucleated RBC % INR (Anticoag Therapy) (0.89-1.11) APTT (26.0-36.3) seconds Sodium (133-145) mmol/L Potassium (3.5-5.0) mmol/L Chloride (101-111) mmol/L Carbon Dioxide (22-32) mmol/L Anion Gap (2-11) mmol/L BUN (6-24) mg/dL Creatinine (0.51-0.95) mg/dL Est GFR ( Amer) (>60) Est GFR (Non-Af Amer) (>60) BUN/Creatinine Ratio (8-20) Glucose (70-100) mg/dL Lactic Acid 1.4 (0.5-2.0) mmol/L Calcium (8.6-10.3) mg/dL Total Bilirubin (0.2-1.0) mg/dL AST (13-39) U/L ALT (7-52) U/L Alkaline Phosphatase (34-104) U/L Troponin I (<0.04) ng/mL C-Reactive Protein (< 5.00) mg/L B-Natriuretic Peptide 114 H ( - 100) pg/mL Total Protein (6.4-8.9) g/dL Albumin (3.2-5.2) g/dL Globulin (2-4) g/dL Albumin/Globulin Ratio (1-3) Influenza A (Rapid) Negative (Negative) Influenza B (Rapid) Negative (Negative) Result Diagrams: 08/16/16 11:00 08/16/16 11:00 Lab Statement: Any lab studies that have been ordered have been reviewed, and results considered in the medical decision making process. - Radiology CXR Radiology Interpretation Completed By: Radiologist - SMALL LEFT BASILAR INFILTRATE. - EKG 1107 Cardiac Rate: Tachycardia - 102 bpm EKG Rhythm: Sinus Tachycardia - [address] Segment: Non-Specific - non-specific ST changes EKG Interpretation: Poor R-wave progression; Q-waves in II, III, and aVF Course/Dx - Course Assessment/Plan: Patient is an 81 year-old female coming to [facility] for evaluation of SOB and cough for several days. Positive history of COPD. In the ED course, patient was given respiratory treatments as well as IV fluids for hydration, with improvement to her symptoms. Labs reviewed. CRP is 46.67. Influenza A and B are negative. CXR show a small left basilar infiltrate. EKG shows sinus tachycardia with poor R-wave progression, non-specific ST changes, and Q-waves in II, III, and aVF. Patient care reviewed with Dr. Mejia, who accepted the patient for admission. - Diagnoses Differential Diagnosis/HQI/PQRI: Positive: CHF, COPD Exacerbation, MO, Pneumonia , Other - dehydration Provider Diagnoses: Acute dyspnea, COPD exacerbation, Pneumonia - Physician Notifications Discussed Care of Patient With: Dr. Mejia (hospitalist) @ 1150: accepts admission. Discharge - Discharge Plan Condition: Stable Disposition: ADMITTED TO [facility] Referrals: Shannan Long MD [Primary Care Provider] - The documentation as recorded by the Victor Hugo baltazar Billy accurately reflects the service I personally performed and the decisions made by , Helio Lomax MD.
[2016-08-16] MEDS ORDERED: Acetaminophen TAB* 325 MG PO PRN (13:27)
[2016-08-16] MEDS ORDERED: Ondansetron ODT TAB* 4 MG PO PRN (13:27)
[2016-08-16] MEDS ORDERED: Bisacodyl SUPP* 10 MG SUPP PR PRN (13:27)
[2016-08-16] MEDS ORDERED: Ipratropium 0.5MG/2.5ML NEB* 0.5 MG/2.5 ML NEB.SOLN INH PRN (13:27)
[2016-08-16] MEDS ORDERED: PROCHLORPERAZINE INJ 5 MG/ML 2 ML VIAL IV PRN (13:33)
[2016-08-16] MEDS ORDERED: Albuterol 2.5 MG/3 ML NEB.SOL* (0.083%) INH PRN (13:37)
--- NOTE | 2016-08-16 15:30 | HP ---
HISTORY AND PHYSICAL: DATE OF ADMISSION: 08/16/16 TIME OF EVALUATION: 12:50 p.m. PRIMARY CARE PROVIDER: Dr. Long. CHIEF COMPLAINT: "She is short of breath again" as per daughter. HISTORY OF PRESENT ILLNESS: Mrs. Alegria is an 81-year-old lady with a past medical history of dementia, COPD, recent admission for COPD exacerbation from 07/26/16 to 08/02/16, who presents to the emergency room with worsening dyspnea. The patient is confused at baseline and unable to provide much information at this time, so the history is obtained from her daughter. Her daughter states that after discharge on 08/02/16, the patient was doing well , but her roommate at [place] came down with respiratory symptoms and was actually admitted to the hospital. Since then, the patient's daughter has noted progressive return of her cough, but she was encouraging her mom to use the flutter valve and she was able to expectorate some whitish sputum, but since yesterday she noticed that the patient was more short of breath sound and more congested, and although she had more frequent cough she was unable to expectorate. She also noted that the patient was weaker than usual and that prompted a visit to the emergency room. At this time, the daughter is now aware of any episodes of choking or aspiration and actually feels she was doing well with pureed diet. She is not aware of any fever or chills. The patient is able to deny chest pain. PAST MEDICAL HISTORY: 1. Dementia. 2. COPD. 3. Admission in June 2015 with Klebsiella pneumonia septicemia of unknown source. 4. Admission in July 2006 with COPD exacerbation. 5. Episode of urinary retention and Citrobacter UTI. MEDICATIONS: 1. Acetaminophen suppository 650 mg p.o. q.4 hours p.r.n. pain or fever. 2. Acetaminophen 325 mg p.o. q.4 hours p.r.n. pain or fever. 3. Acetaminophen 650 mg p.o. t.i.d. 4. Bisacodyl suppository 10 mg per rectum daily p.r.n. constipation. 4. Budesonide 0.5 mg inhaled b.i.d. 5. Cholecalciferol 50,000 units p.o. monthly. 6. Cyanocobalamin 1000 mg intramuscular monthly. 7. Guaifenesin ER 600 mg p.o. b.i.d. 8. Atrovent 0.5 mg inhaled t.i.d. and 0.5 mg inhaled q.4 hours p.r.n. shortness of breath. 9. Mirtazapine 15 mg p.o. daily. 10. Omeprazole 20 mg p.o. daily. 11. Ondansetron 4 mg p.o. b.i.d. as needed for nausea. 12. Spiriva 1 capsule inhaled daily. ALLERGIES: No known drug allergies. FAMILY HISTORY: Unable to obtain from the patient, but reviewed from the record , it is noncontributory. SOCIAL HISTORY: Unable to obtain from the patient, but as per record she is a former smoker, no history of alcohol intake. She resides at [facility]. Surrogate decision maker is her daughter Lilli Loredo, phone number is [phone]. REVIEW OF SYSTEMS: I am unable to obtain due to the patient's dementia. PHYSICAL EXAMINATION GENERAL: The patient is an elderly lady lying in the stretcher in no acute distress. VITAL SIGNS: Temperature 98.6, heart rate 105, respiratory rate is 14, oxygen saturation is 93% on 2 L nasal cannula, blood pressure is 119/44. HEENT: Pupils are equal. Moist mucous membranes. CHEST: Breath sounds present bilaterally with diffuse rhonchi. CVS: Normal S1 and S2. Regular rate and rhythm. ABDOMEN: Soft, bowel sounds are present. EXTREMITIES: No edema. NEUROLOGIC: The patient is a little bit lethargic, but arousable to touch, able to tell me her name, but does not know where she is at. LABORATORY AND IMAGING DATA: The patient had a CBC that showed a WBC of 10.4, hemoglobin of 12.9, hematocrit of 38, platelets of 226 with 88% neutrophils. INR is 0.87. Chemistries were grossly normal, only with chloride of 98, glucose of 190, and CRP of 46. Rapid influenza test was negative. EKG done on 08/16/16 at 1107 showed sinus tachycardia at 102 beats per minute with no significant changes when compared to the prior EKG from 07/26/16. Chest x-ray shows a small left basilar infiltrate. ASSESSMENT AND PLAN: Ms. Alegria is an 81-year-old lady with past medical history of dementia and chronic obstructive pulmonary disease, recent admission for chronic obstructive pulmonary disease exacerbation, who presented to the emergency room with cough and shortness of breath. 1. Chronic obstructive pulmonary disease exacerbation secondary to pneumonia. The patient does not meet sepsis criteria at this time as she is tachycardic, but does not have any other criteria at this point. This episode does not appear to be as severe as the one she had earlier this month. She will be admitted to the telemetry floor and we are going to start her on bronchodilators, levofloxacin, steroids, and we will continue her supplemental oxygen. Although the daughter has not seen any other episodes of choking, aspiration is a concern, so she will have a swallow evaluation with speech therapy. The patient has advanced dementia and chronic obstructive pulmonary disease and this is her second admission in the month with chronic obstructive pulmonary disease exacerbation. I discussed plans for the future with the daughter and she is in agreement that palliative care consultation would be in the patient's best interest. The daughter would like to have some guideline of how to proceed in the future if the patient has other episodes like this as she is not sure her mother would want to be admitted and might have been interested in palliative care. 2. Acute on chronic hypoxemic respiratory failure. As stated above, the patient's presentation at this time is not as severe as earlier this month. We will continue 2 L of oxygen and monitor. 3. Dementia. Continue supportive care. 4. Constipation. Continue Dulcolax suppository as needed. 5. Code status. The patient is a Do Not Resuscitate. Please see MOLST form in her chart. 6. DVT prophylaxis. The patient has a score of 3 on the DVT Prophylaxis Assessment Guide and she will be started on subcutaneous heparin. TIME SPENT: Approximately 60 minutes was spent with the patient and daughter interview, medial records review, physical examination to complete this admission; more than half of this time was spent [id number] with the patient in coordination of care. CC: Dr. Long* [id number]/[facility] #: [id number] KIERA
[2016-08-16] MEDS: NS 0.9% 1000 ML* 1,000 ML IV SCH (15:57)
[2016-08-16] MEDS: Ipratropium 0.5MG/2.5ML NEB* 0.5 MG/2.5 ML NEB.SOLN INH SCH ×2 (15:57→19:49)
[2016-08-16] MEDS: Heparin VIAL(*) 5000 UNITS/ML VIAL (FIVE THOUSAND) SUBCUT SCH ×2 (16:04→21:09)
[2016-08-16] MEDS: methylPREDNISolone SOD SUCC* 40 MG/ML VIAL IV SCH (16:05)
[2016-08-16] MEDS: Budesonide NEB* 0.5 MG/2 ML NEB.SOLN INH SCH (19:49)
[2016-08-16] MEDS: guaiFENesin ER TAB 600 MG PO SCH (21:06)
[2016-08-17] MEDS: methylPREDNISolone SOD SUCC* 40 MG/ML VIAL IV SCH (02:01)
[2016-08-17] MEDS: NS 0.9% 1000 ML* 1,000 ML IV SCH (04:00)
[2016-08-17 04:58] LABS: Hematocrit 34 % (35-47); Hemoglobin 11.2 g/dl (12.0-16.0); Mean Corpuscular HGB Conc 33 g/dl (31-36); Mean Corpuscular Hemoglobin 30 pg (27-31); Mean Corpuscular Volume 90 fL (80-97); Mean Platelet Volume 8 um3 (7.4-10.4); Red Blood Count 3.77 10^6/ul (4.0-5.4); Red Cell Distribution Width 17 % (10.5-15); White Blood Count 6.7 10^3/ul (3.5-10.8)
[2016-08-17 05:15] LABS: BUN/Creatinine Ratio 28.3 (8-20); Calcium 8.8 mg/dL (8.6-10.3); EGFR African American 122.8 (>60); EGFR Non-African American 95.5 (>60); Potassium 4.4 mmol/L (3.5-5.0)
[2016-08-17] MEDS: Heparin VIAL(*) 5000 UNITS/ML VIAL (FIVE THOUSAND) SUBCUT SCH (05:54)
[2016-08-17] MEDS: guaiFENesin ER TAB 600 MG PO SCH (08:32)
[2016-08-17] MEDS: Omeprazole CAP* 20 MG PO SCH (08:32)
[2016-08-17] MEDS ORDERED: Spiriva Inhaler DEVICE* 1 EACH DEVICE INH ONE (09:00)
[2016-08-17] MEDS ORDERED: Mirtazapine TAB* 15 MG PO SCH ×2 (09:00→10:50)
[2016-08-17] MEDS: Ipratropium 0.5MG/2.5ML NEB* 0.5 MG/2.5 ML NEB.SOLN INH SCH ×3 (09:49→20:01)
[2016-08-17] MEDS: Tiotropium CAP.INH* CAP.INH/18 MCG INH SCH ×2 (09:49→09:52)
[2016-08-17] MEDS: Budesonide NEB* 0.5 MG/2 ML NEB.SOLN INH SCH (09:49)
--- NOTE | 2016-08-17 10:56 | PN ---
Subjective Date of Service: 08/17/16 Interval History: Not clear if patient could make her needs known. She does not offer any c/o. Her daughter is present at the bedside and sees little if any change from yesterday. Objective Active Medications: Acetaminophen (Tylenol Tab*) 650 mg PO TID PRN PRN Reason: PAIN Albuterol (Ventolin 2.5 Mg/3 Ml Neb.Janette*) 2.5 mg INH Q4H PRN PRN Reason: SOB/WHEEZING Bisacodyl (Dulcolax Supp*) 10 mg ND DAILY PRN PRN Reason: CONSTIPATION Budesonide (Pulmicort Neb*) 0.5 mg INH BID [facility] Last Admin: 08/17/16 09:49 Dose: 0.5 mg Guaifenesin (Mucinex*) 600 mg PO BID [facility] Last Admin: 08/17/16 08:32 Dose: 600 mg Heparin Sodium (Porcine) (Heparin Vial(*)) 5,000 units SUBCUT Q8HR [facility] Last Admin: 08/17/16 05:54 Dose: 5,000 units Levofloxacin/Dextrose (Levaquin 250 Mg Ivpremx(*)) 250 mg in 50 mls @ 50 mls/ hr IVPB Q24H [facility] Ipratropium Cameron (Atrovent 0.5 Mg Neb.Janette*) 0.5 mg INH TID [facility] Last Admin: 08/17/16 09:49 Dose: 0.5 mg Ipratropium Cameron (Atrovent 0.5 Mg Neb.Janette*) 0.5 mg INH Q4HR PRN PRN Reason: SOB/WHEEZING Mirtazapine (Remeron Tab*) 7.5 mg PO DAILY [facility] Omeprazole (Prilosec Cap*) 20 mg PO DAILY [facility] Last Admin: 08/17/16 08:32 Dose: 20 mg Prednisone (Deltasone Tab*) 40 mg PO BID [facility] Prochlorperazine Edisylate (Compazine Inj*) 5 mg IV Q6H PRN PRN Reason: NAUSEA/VOMITING Tiotropium Cameron (Spiriva Cap.Inh*) 1 cap INH DAILY [facility] Last Admin: 08/17/16 09:52 Dose: Not Given Vital Signs 08/16/16 08/16/16 08/16/16 12:00 12:30 12:57 Temperature 98.6 F Pulse Rate 98 94 105 Respiratory 19 18 14 Rate Blood Pressure 93/56 112/48 119/44 (mmHg) O2 Sat by Pulse 93 91 Oximetry 08/16/16 08/16/16 08/16/16 14:02 14:09 15:56 Temperature 97.6 F Pulse Rate 96 96 83 Respiratory 18 18 24 Rate Blood Pressure 120/63 120/63 105/60 (mmHg) O2 Sat by Pulse 100 100 91 Oximetry 08/16/16 08/16/16 08/16/16 16:00 16:01 19:53 Temperature Pulse Rate 90 85 Respiratory 15 20 Rate Blood Pressure (mmHg) O2 Sat by Pulse 92 95 91 Oximetry 08/16/16 08/16/16 08/16/16 19:54 20:00 23:51 Temperature 98.1 F 97.2 F Pulse Rate 99 85 Respiratory 19 20 20 Rate Blood Pressure 135/70 111/59 (mmHg) O2 Sat by Pulse 97 98 Oximetry 08/17/16 08/17/16 08/17/16 07:27 07:28 07:56 Temperature 96.8 F 99.6 F Pulse Rate 92 Respiratory 26 16 Rate Blood Pressure 118/78 (mmHg) O2 Sat by Pulse 96 97 Oximetry 08/17/16 09:57 Temperature Pulse Rate 94 Respiratory 16 Rate Blood Pressure (mmHg) O2 Sat by Pulse 97 Oximetry Oxygen Devices in Use Now: Nasal Cannula Appearance: Alert but very passive. Head partly up in bed. Looks comfortable but with an occ moist cough. Eyes: No Scleral Icterus Ears/Nose/Mouth/Throat: Clear Oropharnyx, Mucous Membranes Moist Neck: NL Appearance and Movements; NL JVP, No Thyroid Enlargement, Masses Respiratory: Symmetrical Chest Expansion and Respiratory Effort, Clear to Percussion - mild rhonchi BL Cardiovascular: NL Sounds; No Murmurs; No JVD, RRR, No Edema, - Extremities: No Edema, No Clubbing, Cyanosis, - Skin: No Rash or Ulcers, No Nodules or Sclerosis, - Neurological: NL Sensation, - - Moves all limbs. No tremor. Brief eye contat. Unable to answer simple questions. Result Diagrams: 08/17/16 04:30 08/17/16 04:30 Additional Lab and Data: Lab Results 08/16/16 08/16/16 08/16/16 Range/Units 11:00 11:00 11:00 WBC 10.4 (3.5-10.8) 10^3/ul RBC 4.28 (4.0-5.4) 10^6/ul Hgb 12.9 (12.0-16.0) g/dl Hct 38 (35-47) % MCV 89 (80-97) fL MCH 30 (27-31) pg MCHC 34 (31-36) g/dl RDW 17 H (10.5-15) % Plt Count 226 (150-450) 10^3/ul MPV 8 (7.4-10.4) um3 Neut % (Auto) 88.4 H (38-83) % Lymph % (Auto) 4.8 L (25-47) % Emmons % (Auto) 5.7 (1-9) % Eos % (Auto) 0.8 (0-6) % Baso % (Auto) 0.3 (0-2) % Absolute Neuts (auto) 9.2 H (1.5-7.7) 10^3/ul Absolute Lymphs (auto) 0.5 L (1.0-4.8) 10^3/ul Absolute Monos (auto) 0.6 (0-0.8) 10^3/ul Absolute Eos (auto) 0.1 (0-0.6) 10^3/ul Absolute Basos (auto) 0 (0-0.2) 10^3/ul Absolute Nucleated RBC 0 10^3/ul Nucleated RBC % 0 INR (Anticoag Therapy) 0.87 L (0.89-1.11) APTT 23.9 L (26.0-36.3) seconds Sodium 134 (133-145) mmol/L Potassium 3.8 (3.5-5.0) mmol/L Chloride 98 L (101-111) mmol/L Carbon Dioxide 32 (22-32) mmol/L Anion Gap 4 (2-11) mmol/L BUN 21 (6-24) mg/dL Creatinine 0.71 (0.51-0.95) mg/dL Est GFR ( Amer) 101.1 (>60) Est GFR (Non-Af Amer) 78.6 (>60) BUN/Creatinine Ratio 29.6 H (8-20) Glucose 190 H (70-100) mg/dL Lactic Acid (0.5-2.0) mmol/L Calcium 9.4 (8.6-10.3) mg/dL Total Bilirubin 0.50 (0.2-1.0) mg/dL AST 14 (13-39) U/L ALT 12 (7-52) U/L Alkaline Phosphatase 87 (34-104) U/L Troponin I 0.02 (<0.04) ng/mL C-Reactive Protein 46.67 H (< 5.00) mg/L B-Natriuretic Peptide ( - 100) pg/mL Total Protein 6.7 (6.4-8.9) g/dL Albumin 3.4 (3.2-5.2) g/dL Globulin 3.3 (2-4) g/dL Albumin/Globulin Ratio 1.0 (1-3) Influenza A (Rapid) (Negative) Influenza B (Rapid) (Negative) 08/16/16 08/16/16 08/16/16 Range/Units 11:00 11:00 11:33 WBC (3.5-10.8) 10^3/ul RBC (4.0-5.4) 10^6/ul Hgb (12.0-16.0) g/dl Hct (35-47) % MCV (80-97) fL MCH (27-31) pg MCHC (31-36) g/dl RDW (10.5-15) % Plt Count (150-450) 10^3/ul MPV (7.4-10.4) um3 Neut % (Auto) (38-83) % Lymph % (Auto) (25-47) % Emmons % (Auto) (1-9) % Eos % (Auto) (0-6) % Baso % (Auto) (0-2) % Absolute Neuts (auto) (1.5-7.7) 10^3/ul Absolute Lymphs (auto) (1.0-4.8) 10^3/ul Absolute Monos (auto) (0-0.8) 10^3/ul Absolute Eos (auto) (0-0.6) 10^3/ul Absolute Basos (auto) (0-0.2) 10^3/ul Absolute Nucleated RBC 10^3/ul Nucleated RBC % INR (Anticoag Therapy) (0.89-1.11) APTT (26.0-36.3) seconds Sodium (133-145) mmol/L Potassium (3.5-5.0) mmol/L Chloride (101-111) mmol/L Carbon Dioxide (22-32) mmol/L Anion Gap (2-11) mmol/L BUN (6-24) mg/dL Creatinine (0.51-0.95) mg/dL Est GFR ( Amer) (>60) Est GFR (Non-Af Amer) (>60) BUN/Creatinine Ratio (8-20) Glucose (70-100) mg/dL Lactic Acid 1.4 (0.5-2.0) mmol/L Calcium (8.6-10.3) mg/dL Total Bilirubin (0.2-1.0) mg/dL AST (13-39) U/L ALT (7-52) U/L Alkaline Phosphatase (34-104) U/L Troponin I (<0.04) ng/mL C-Reactive Protein (< 5.00) mg/L B-Natriuretic Peptide 114 H ( - 100) pg/mL Total Protein (6.4-8.9) g/dL Albumin (3.2-5.2) g/dL Globulin (2-4) g/dL Albumin/Globulin Ratio (1-3) Influenza A (Rapid) Negative (Negative) Influenza B (Rapid) Negative (Negative) Assess/Plan/Problems-Billing Assessment: - Patient Problems (1) Pneumonia Current Visit: Yes Status: Acute Code(s): J18.9 - PNEUMONIA, UNSPECIFIED ORGANISM SNOMED Code(s): 487692552 Comment: Continue IV levofloxacin. Prednisone 20 mg bid, budesonide, bronchodilators. (2) Dementia Current Visit: No Status: Acute Priority: High Code(s): F03.90 - UNSPECIFIED DEMENTIA WITHOUT BEHAVIORAL DISTURBANCE SNOMED Code(s): 50874001 Comment: Progressive dementia and weight loss noted by her daughter. The daughter wants no artifical feedings and I think would agree to Hospice care and [facility]. Palliative care consult pending. Mirtazapine dose reduced--no clear benefit.
[2016-08-17 11:26] VITALS: BP 163/74
[2016-08-17] MEDS ORDERED: Furosemide IV* 10 MG/ML 2 ML VIAL (20 MG) IV ONE (11:35)
[2016-08-17] MEDS: predniSONE TAB* 20 MG PO SCH ×2 (11:38→11:43)
[2016-08-17] MEDS ORDERED: Furosemide IV* 10 MG/ML 2 ML VIAL (20 MG) ONE (11:43)
[2016-08-17] MEDS: Morphine ORAL CONCENTRATE* 5 MG/0.25 ML ORAL.SYRIN SL PRN ×4 (11:48→16:26)
[2016-08-17] MEDS ORDERED: Levofloxacin 750 MG IVPREMIX(* 750 MG/150 ML BAG IVPB SCH (12:00)
[2016-08-17] MEDS ORDERED: Levofloxacin 250 MG IVPREMX(*) 250 MG/50 ML BAG IVPB SCH (12:00)
[2016-08-17 12:06] LABS: TSH (Thyroid Stimulating Horm) 0.78 mcIU/mL (0.34-5.60)
[2016-08-17] MEDS: Atropine 1% (ORAL/SL)* 15 ML BTL SL PRN (12:28)
[2016-08-17] MEDS: LORazepam INJ* 2 MG/ML 1 ML VIAL IV PUSH PRN ×3 (13:14→20:16)
[2016-08-17] MEDS ORDERED: Lidocaine 2.5%/Prilocain 2.5%* 5 GM TUBE TOPICAL ONE (14:19)
[2016-08-17] MEDS: Morphine INJ* 2 MG/ML 1 ML SYRINGE IV PRN ×2 (14:59→20:13)
--- NOTE | 2016-08-17 18:54 | CONS ---
PALLIATIVE CARE CONSULTATION: DATE OF CONSULT: 08/17/16 PRIMARY CARE PHYSICIAN: Shannan Long MD. REQUESTING PHYSICIAN FOR CONSULTATION: Dana Shepherd MD. HOSPITAL COURSE: This is an 81-year-old female with the past medical history of nbviazep-sm-joyewd dementia and COPD with a recent admission in this month for COPD exacerbation and aspiration pneumonia who is admitted to the ICU, placed on Vapotherm, returns from [facility] for shortness of breath. The patient is unable to answer questions appropriately, the daughter, Lilli, who is her power of attorney at law healthcare proxy who has been mostly at the bedside providing much of the history, states that she did do well at discharge on 08/02/16, but her roommate at [facility] developed respiratory symptoms and since then she has been developing more progressive URI symptoms. There was no known choking event, though she does have history of aspiration pneumonia. On admission, the patient was being treated for COPD exacerbation and pneumonia, but because of her recurrent admission for her respiratory failure and with her advanced dementia, there was discussion of palliative care consultation and comfort measures and the daughter was interested in this. This morning, the patient's respiratory status deteriorated rather rapidly, becoming more tachycardic, tachypneic, and hypoxic. She is fighting the face mask and the nasal cannula and is not interested in this. On my encounter, the patient is tachypneic, rhonchorous, with increased work of breathing. Her daughter, her grandson, and her niece are at the bedside and they all want her to be comfortable. They do not want her to go back to [facility], they understand that patient may not survive to discharge. The patient is able to tell me that she is still struggling to breathe and she feels that the medicine is not working. She has difficulty taking any medication in her mouth. Otherwise, review of systems is limited due to patient's dementia and respiratory distress. PAST MEDICAL HISTORY: 1. Oxsytymt-vu-ziwgrh dementia. 2. COPD. 3. Recent admission in July 2016, requiring ICU, on Vapotherm for COPD and aspiration pneumonia. 4. History of recurrent UTIs. 5. GERD. INPATIENT MEDICATIONS: 1. Tylenol 650 mg every 8 hours as needed. 2. Albuterol every 4 hours as needed. 3. DuoNeb. 4. Atropine 2 drops sublingual q.2 suppository as needed. 5. Ipratropium every 4 hours as needed 3 times a day. 6. Lorazepam 0.5 mg q.2 hours as needed. 7. Levaquin 250 mg IV. 8. Mirtazapine 7.5 mg p.o. daily. 9. Morphine 5 mg sublingual q.30 minutes. 10 Omeprazole 20 mg daily. 11. Compazine 5 mg IV q.6 hours as needed. 12. Spiriva daily. 13. Prednisone 40 mg p.o. b.i.d. 14. Heparin 5000 units subcu t.i.d. 15. Budesonide 0.5 mg inhaled b.i.d. ALLERGIES: No known drug allergies. FAMILY HISTORY: Reviewed and noncontributory. SOCIAL HISTORY: As mentioned, the patient is a resident at [facility]. She is a former smoker. No alcohol history. Her surrogate decision maker is her daughter, Lilli, [phone]. Her MOLST on admission is a DNR/DNI and limited medical interventions. REVIEW OF SYSTEMS: Limited as mentioned in the HPI. PHYSICAL EXAMINATION: Vitals: Temp 98.6, pulse rate 122, respiratory rate 38, oxygen saturation 88% on room air, blood pressure 163/74. General: The patient is in ctad-zq-ricysglo respiratory distress with increased work of breathing. She has her daughter and grandson and niece at the bedside. HEENT: Neck is supple. No lymphadenopathy. Oropharynx, mucous membranes are dry. Pupils are pinpoint reactive. Conjunctivae injected. Head is normocephalic. Cardiac: Tachycardic. No murmurs, rubs, or gallops. Respiratory: Coarse rhonchi. There is upper airway breath sounds with poor aeration. Abdomen: Soft, nontender, and nondistended. Extremities: No clubbing, cyanosis, or edema. Neurologic: The patient is alert and oriented x0. Unable to follow commands appropriately. LABORATORY DATA: White count 6.7, hemoglobin 11.2, hematocrit 34, platelets 194. Sodium 137, potassium 4.4, chloride 103, bicarb 29, BUN 17, creatinine 0.6 , lactic acid 2.3. Chest x-ray on admission on the shows small left basilar infiltrate. ASSESSMENT: This is an 81-year-old female with past medical history of moderate -to- severe dementia and chronic obstructive pulmonary disease with a recent admission with respiratory failure requiring the ICU, who presents to the emergency room on the with respiratory distress and found to have pneumonia and chronic obstructive pulmonary disease exacerbation. The patient has declined in her respiratory status and the family wants her to be kept comfortable. They understand that her prognosis is grim and that she likely will not survive to discharge. She seems to be struggling still with her breathing. I discussed discontinuing antibiotics that will not improve her quality, but may prolong the life. They are agreeable to this and she also is having difficulty taking any p.o. at this time either, so we will discontinue her heparin, her prednisone, her budesonide. We will start her on morphine IV as well, as the patient is having difficulty tolerating the sublingual morphine. Thank you for this consultation. We will follow along with you. TIME SPENT: Greater than 60 minutes was spent doing this consultation, more than half the time spent in direct patient contact. CC: Shannan Long MD* [id number]/[facility] #: [id number] KIERA
[2016-08-18] MEDS: Morphine INJ* 2 MG/ML 1 ML SYRINGE IV PRN ×7 (01:10→19:18)
[2016-08-18] MEDS: LORazepam INJ* 2 MG/ML 1 ML VIAL IV PUSH PRN (01:11)
[2016-08-18] MEDS: Tiotropium CAP.INH* CAP.INH/18 MCG INH SCH (07:28)
[2016-08-18] MEDS: Omeprazole CAP* 20 MG PO SCH (07:28)
--- NOTE | 2016-08-18 10:20 | PN ---
Subjective Date of Service: 08/18/16 Interval History: Patient is unresponsive. Objective Active Medications: Acetaminophen (Tylenol Tab*) 650 mg PO TID PRN PRN Reason: PAIN Albuterol (Ventolin 2.5 Mg/3 Ml Neb.Janette*) 2.5 mg INH Q4H PRN PRN Reason: SOB/WHEEZING Atropine Sulfate (Atropine 1% (Oral/Sl)*) 2 drop SL Q2H PRN PRN Reason: DISCOMFORT Last Admin: 08/17/16 12:28 Dose: 2 drop Bisacodyl (Dulcolax Supp*) 10 mg [place] DAILY PRN PRN Reason: CONSTIPATION Ipratropium Oto (Atrovent 0.5 Mg Neb.Janette*) 0.5 mg INH Q4HR PRN PRN Reason: SOB/WHEEZING Lorazepam (Ativan Tab(*)) 0.5 mg SL Q2H PRN PRN Reason: ANXIETY Lorazepam (Ativan Inj*) 0.5 mg IV PUSH Q2H PRN PRN Reason: ANXIETY Last Admin: 08/18/16 01:11 Dose: 0.5 mg Mirtazapine (Remeron Tab*) 7.5 mg PO DAILY [facility] Last Admin: 08/18/16 07:28 Dose: Not Given Morphine Sulfate (Morphine Oral Concentrate*) 5 mg SL Q30M PRN PRN Reason: PAIN Last Admin: 08/17/16 16:26 Dose: 5 mg Morphine Sulfate (Morphine Inj (Syringe)*) 2 mg IV Q1HR PRN PRN Reason: SOB/WHEEZING Last Admin: 08/18/16 09:26 Dose: 2 mg Omeprazole (Prilosec Cap*) 20 mg PO DAILY [facility] Last Admin: 08/18/16 07:28 Dose: Not Given Prochlorperazine Edisylate (Compazine Inj*) 5 mg IV Q6H PRN PRN Reason: NAUSEA/VOMITING Vital Signs 08/17/16 08/17/16 08/17/16 11:11 11:48 12:27 Temperature 98.6 F Pulse Rate 122 Respiratory 38 36 30 Rate Blood Pressure 163/74 (mmHg) O2 Sat by Pulse 88 Oximetry 08/17/16 08/17/16 08/17/16 13:03 13:14 13:48 Temperature Pulse Rate Respiratory 30 30 30 Rate Blood Pressure (mmHg) O2 Sat by Pulse Oximetry 08/17/16 08/17/16 08/17/16 14:14 14:27 14:59 Temperature Pulse Rate Respiratory 32 32 30 Rate Blood Pressure (mmHg) O2 Sat by Pulse Oximetry 08/17/16 08/17/16 08/17/16 15:03 15:59 16:24 Temperature Pulse Rate Respiratory 32 32 32 Rate Blood Pressure (mmHg) O2 Sat by Pulse Oximetry 08/17/16 08/17/16 08/17/16 16:26 17:24 18:26 Temperature Pulse Rate Respiratory 16 15 15 Rate Blood Pressure (mmHg) O2 Sat by Pulse Oximetry 08/17/16 08/17/16 08/17/16 20:00 20:13 20:16 Temperature Pulse Rate Respiratory 15 15 15 Rate Blood Pressure (mmHg) O2 Sat by Pulse Oximetry 08/17/16 08/17/16 08/18/16 21:13 21:16 01:10 Temperature Pulse Rate Respiratory 14 14 18 Rate Blood Pressure (mmHg) O2 Sat by Pulse Oximetry 08/18/16 08/18/16 08/18/16 01:11 02:10 02:11 Temperature Pulse Rate Respiratory 18 15 15 Rate Blood Pressure (mmHg) O2 Sat by Pulse Oximetry 08/18/16 08/18/16 08/18/16 06:51 07:10 07:51 Temperature Pulse Rate Respiratory 24 24 20 Rate Blood Pressure (mmHg) O2 Sat by Pulse Oximetry 08/18/16 09:26 Temperature Pulse Rate Respiratory 20 Rate Blood Pressure (mmHg) O2 Sat by Pulse Oximetry Oxygen Devices in Use Now: Nasal Cannula Appearance: Eyes closed, partly up in bed. Unresponsive. Looks comfortable. Respiratory: - - mildly noisy respirations, not labored. Extremities: No Edema, No Clubbing, Cyanosis, - Skin: No Rash or Ulcers, No Nodules or Sclerosis, - Neurological: - - Eyes closed, unresponsive, not moving, no tremor. Result Diagrams: 08/17/16 04:30 08/17/16 04:30 Additional Lab and Data: Lab Results 08/16/16 08/16/16 08/16/16 Range/Units 11:00 11:00 11:00 WBC 10.4 (3.5-10.8) 10^3/ul RBC 4.28 (4.0-5.4) 10^6/ul Hgb 12.9 (12.0-16.0) g/dl Hct 38 (35-47) % MCV 89 (80-97) fL MCH 30 (27-31) pg MCHC 34 (31-36) g/dl RDW 17 H (10.5-15) % Plt Count 226 (150-450) 10^3/ul MPV 8 (7.4-10.4) um3 Neut % (Auto) 88.4 H (38-83) % Lymph % (Auto) 4.8 L (25-47) % [place] % (Auto) 5.7 (1-9) % Eos % (Auto) 0.8 (0-6) % Baso % (Auto) 0.3 (0-2) % Absolute Neuts (auto) 9.2 H (1.5-7.7) 10^3/ul Absolute Lymphs (auto) 0.5 L (1.0-4.8) 10^3/ul Absolute Monos (auto) 0.6 (0-0.8) 10^3/ul Absolute Eos (auto) 0.1 (0-0.6) 10^3/ul Absolute Basos (auto) 0 (0-0.2) 10^3/ul Absolute Nucleated RBC 0 10^3/ul Nucleated RBC % 0 INR (Anticoag Therapy) 0.87 L (0.89-1.11) APTT 23.9 L (26.0-36.3) seconds Sodium 134 (133-145) mmol/L Potassium 3.8 (3.5-5.0) mmol/L Chloride 98 L (101-111) mmol/L Carbon Dioxide 32 (22-32) mmol/L Anion Gap 4 (2-11) mmol/L BUN 21 (6-24) mg/dL Creatinine 0.71 (0.51-0.95) mg/dL Est GFR ( Amer) 101.1 (>60) Est GFR (Non-Af Amer) 78.6 (>60) BUN/Creatinine Ratio 29.6 H (8-20) Glucose 190 H (70-100) mg/dL Lactic Acid (0.5-2.0) mmol/L Calcium 9.4 (8.6-10.3) mg/dL Total Bilirubin 0.50 (0.2-1.0) mg/dL AST 14 (13-39) U/L ALT 12 (7-52) U/L Alkaline Phosphatase 87 (34-104) U/L Troponin I 0.02 (<0.04) ng/mL C-Reactive Protein 46.67 H (< 5.00) mg/L B-Natriuretic Peptide ( - 100) pg/mL Total Protein 6.7 (6.4-8.9) g/dL Albumin 3.4 (3.2-5.2) g/dL Globulin 3.3 (2-4) g/dL Albumin/Globulin Ratio 1.0 (1-3) Influenza A (Rapid) (Negative) Influenza B (Rapid) (Negative) 08/16/16 08/16/16 08/16/16 Range/Units 11:00 11:00 11:33 WBC (3.5-10.8) 10^3/ul RBC (4.0-5.4) 10^6/ul Hgb (12.0-16.0) g/dl Hct (35-47) % MCV (80-97) fL MCH (27-31) pg MCHC (31-36) g/dl RDW (10.5-15) % Plt Count (150-450) 10^3/ul MPV (7.4-10.4) um3 Neut % (Auto) (38-83) % Lymph % (Auto) (25-47) % [place] % (Auto) (1-9) % Eos % (Auto) (0-6) % Baso % (Auto) (0-2) % Absolute Neuts (auto) (1.5-7.7) 10^3/ul Absolute Lymphs (auto) (1.0-4.8) 10^3/ul Absolute Monos (auto) (0-0.8) 10^3/ul Absolute Eos (auto) (0-0.6) 10^3/ul Absolute Basos (auto) (0-0.2) 10^3/ul Absolute Nucleated RBC 10^3/ul Nucleated RBC % INR (Anticoag Therapy) (0.89-1.11) APTT (26.0-36.3) seconds Sodium (133-145) mmol/L Potassium (3.5-5.0) mmol/L Chloride (101-111) mmol/L Carbon Dioxide (22-32) mmol/L Anion Gap (2-11) mmol/L BUN (6-24) mg/dL Creatinine (0.51-0.95) mg/dL Est GFR ( Amer) (>60) Est GFR (Non-Af Amer) (>60) BUN/Creatinine Ratio (8-20) Glucose (70-100) mg/dL Lactic Acid 1.4 (0.5-2.0) mmol/L Calcium (8.6-10.3) mg/dL Total Bilirubin (0.2-1.0) mg/dL AST (13-39) U/L ALT (7-52) U/L Alkaline Phosphatase (34-104) U/L Troponin I (<0.04) ng/mL C-Reactive Protein (< 5.00) mg/L B-Natriuretic Peptide 114 H ( - 100) pg/mL Total Protein (6.4-8.9) g/dL Albumin (3.2-5.2) g/dL Globulin (2-4) g/dL Albumin/Globulin Ratio (1-3) Influenza A (Rapid) Negative (Negative) Influenza B (Rapid) Negative (Negative) Assess/Plan/Problems-Billing Assessment: - Patient Problems (1) Pneumonia Current Visit: Yes Status: Acute Code(s): J18.9 - PNEUMONIA, UNSPECIFIED ORGANISM SNOMED Code(s): 558307834 Comment: Comfort measures only. (2) Dementia Current Visit: No Status: Acute Priority: High Code(s): F03.90 - UNSPECIFIED DEMENTIA WITHOUT BEHAVIORAL DISTURBANCE SNOMED Code(s): 85369560 Comment: Progressive dementia and weight loss noted by her daughter. The daughter wants no artifical feedings and I think would agree to Hospice care and [facility]NH. Palliative care consult pending. D/C mirtazapine--no clear benefit. (3) End of life care Current Visit: Yes Status: Acute Code(s): Z51.5 - ENCOUNTER FOR PALLIATIVE CARE SNOMED Code(s): 271363849 Comment: Daughter and niece present, seem satisfied with her care.
[2016-08-19] MEDS: Morphine INJ* 2 MG/ML 1 ML SYRINGE IV PRN (01:44)
[2016-08-19] MEDS: Morphine ORAL CONCENTRATE* 5 MG/0.25 ML ORAL.SYRIN SL PRN ×3 (08:23→21:27)
[2016-08-19] MEDS: Omeprazole CAP* 20 MG PO SCH (08:24)
[2016-08-19] MEDS: Atropine 1% (ORAL/SL)* 15 ML BTL SL PRN ×2 (12:56→21:28)
[2016-08-19] MEDS: LORazepam TAB(*) 0.5 MG SL PRN (12:57)
--- NOTE | 2016-08-19 13:41 | PN ---
Subjective Date of Service: 08/19/16 Interval History: Patient not able to make her needs known. Daughter at bedside, feels patient is more comfortable today. Objective Active Medications: Atropine Sulfate (Atropine 1% (Oral/Sl)*) 2 drop SL Q2H PRN PRN Reason: DISCOMFORT Last Admin: 08/19/16 12:56 Dose: 2 drop Lorazepam (Ativan Tab(*)) 0.5 mg SL Q2H PRN PRN Reason: ANXIETY Last Admin: 08/19/16 12:57 Dose: 0.5 mg Lorazepam (Ativan Inj*) 0.5 mg IV PUSH Q2H PRN PRN Reason: ANXIETY Last Admin: 08/18/16 01:11 Dose: 0.5 mg Morphine Sulfate (Morphine Oral Concentrate*) 5 mg SL Q30M PRN PRN Reason: PAIN Last Admin: 08/19/16 12:56 Dose: 5 mg Morphine Sulfate (Morphine Inj (Syringe)*) 2 mg IV Q1HR PRN PRN Reason: SOB/WHEEZING Last Admin: 08/19/16 01:44 Dose: 2 mg Omeprazole (Prilosec Cap*) 20 mg PO DAILY [facility] Last Admin: 08/19/16 08:24 Dose: Not Given Prochlorperazine Edisylate (Compazine Inj*) 5 mg IV Q6H PRN PRN Reason: NAUSEA/VOMITING Vital Signs 08/18/16 08/18/16 08/18/16 13:45 14:45 16:54 Respiratory 24 20 24 Rate 08/18/16 08/18/16 08/18/16 17:41 19:18 19:57 Respiratory 20 19 17 Rate 08/18/16 08/19/16 08/19/16 20:18 01:44 02:44 Respiratory 15 17 15 Rate 08/19/16 08/19/16 08/19/16 08:23 10:23 12:56 Respiratory 30 24 30 Rate 08/19/16 12:57 Respiratory 30 Rate Oxygen Devices in Use Now: Nasal Cannula Appearance: Eyes closed, head partly up in bed. Not moving. Loks comfortable, although somewhat tachypneic. Extremities: No Edema, No Clubbing, Cyanosis, - Skin: No Rash or Ulcers, No Nodules or Sclerosis, - Result Diagrams: 08/17/16 04:30 08/17/16 04:30 Additional Lab and Data: Lab Results 08/16/16 08/16/16 08/16/16 Range/Units 11:00 11:00 11:00 WBC 10.4 (3.5-10.8) 10^3/ul RBC 4.28 (4.0-5.4) 10^6/ul Hgb 12.9 (12.0-16.0) g/dl Hct 38 (35-47) % MCV 89 (80-97) fL MCH 30 (27-31) pg MCHC 34 (31-36) g/dl RDW 17 H (10.5-15) % Plt Count 226 (150-450) 10^3/ul MPV 8 (7.4-10.4) um3 Neut % (Auto) 88.4 H (38-83) % Lymph % (Auto) 4.8 L (25-47) % [place] % (Auto) 5.7 (1-9) % Eos % (Auto) 0.8 (0-6) % Baso % (Auto) 0.3 (0-2) % Absolute Neuts (auto) 9.2 H (1.5-7.7) 10^3/ul Absolute Lymphs (auto) 0.5 L (1.0-4.8) 10^3/ul Absolute Monos (auto) 0.6 (0-0.8) 10^3/ul Absolute Eos (auto) 0.1 (0-0.6) 10^3/ul Absolute Basos (auto) 0 (0-0.2) 10^3/ul Absolute Nucleated RBC 0 10^3/ul Nucleated RBC % 0 INR (Anticoag Therapy) 0.87 L (0.89-1.11) APTT 23.9 L (26.0-36.3) seconds Sodium 134 (133-145) mmol/L Potassium 3.8 (3.5-5.0) mmol/L Chloride 98 L (101-111) mmol/L Carbon Dioxide 32 (22-32) mmol/L Anion Gap 4 (2-11) mmol/L BUN 21 (6-24) mg/dL Creatinine 0.71 (0.51-0.95) mg/dL Est GFR ( Amer) 101.1 (>60) Est GFR (Non-Af Amer) 78.6 (>60) BUN/Creatinine Ratio 29.6 H (8-20) Glucose 190 H (70-100) mg/dL Lactic Acid (0.5-2.0) mmol/L Calcium 9.4 (8.6-10.3) mg/dL Total Bilirubin 0.50 (0.2-1.0) mg/dL AST 14 (13-39) U/L ALT 12 (7-52) U/L Alkaline Phosphatase 87 (34-104) U/L Troponin I 0.02 (<0.04) ng/mL C-Reactive Protein 46.67 H (< 5.00) mg/L B-Natriuretic Peptide ( - 100) pg/mL Total Protein 6.7 (6.4-8.9) g/dL Albumin 3.4 (3.2-5.2) g/dL Globulin 3.3 (2-4) g/dL Albumin/Globulin Ratio 1.0 (1-3) Influenza A (Rapid) (Negative) Influenza B (Rapid) (Negative) 08/16/16 08/16/16 08/16/16 Range/Units 11:00 11:00 11:33 WBC (3.5-10.8) 10^3/ul RBC (4.0-5.4) 10^6/ul Hgb (12.0-16.0) g/dl Hct (35-47) % MCV (80-97) fL MCH (27-31) pg MCHC (31-36) g/dl RDW (10.5-15) % Plt Count (150-450) 10^3/ul MPV (7.4-10.4) um3 Neut % (Auto) (38-83) % Lymph % (Auto) (25-47) % [place] % (Auto) (1-9) % Eos % (Auto) (0-6) % Baso % (Auto) (0-2) % Absolute Neuts (auto) (1.5-7.7) 10^3/ul Absolute Lymphs (auto) (1.0-4.8) 10^3/ul Absolute Monos (auto) (0-0.8) 10^3/ul Absolute Eos (auto) (0-0.6) 10^3/ul Absolute Basos (auto) (0-0.2) 10^3/ul Absolute Nucleated RBC 10^3/ul Nucleated RBC % INR (Anticoag Therapy) (0.89-1.11) APTT (26.0-36.3) seconds Sodium (133-145) mmol/L Potassium (3.5-5.0) mmol/L Chloride (101-111) mmol/L Carbon Dioxide (22-32) mmol/L Anion Gap (2-11) mmol/L BUN (6-24) mg/dL Creatinine (0.51-0.95) mg/dL Est GFR ( Amer) (>60) Est GFR (Non-Af Amer) (>60) BUN/Creatinine Ratio (8-20) Glucose (70-100) mg/dL Lactic Acid 1.4 (0.5-2.0) mmol/L Calcium (8.6-10.3) mg/dL Total Bilirubin (0.2-1.0) mg/dL AST (13-39) U/L ALT (7-52) U/L Alkaline Phosphatase (34-104) U/L Troponin I (<0.04) ng/mL C-Reactive Protein (< 5.00) mg/L B-Natriuretic Peptide 114 H ( - 100) pg/mL Total Protein (6.4-8.9) g/dL Albumin (3.2-5.2) g/dL Globulin (2-4) g/dL Albumin/Globulin Ratio (1-3) Influenza A (Rapid) Negative (Negative) Influenza B (Rapid) Negative (Negative) Assess/Plan/Problems-Billing Assessment: - Patient Problems (1) Pneumonia Current Visit: Yes Status: Acute Code(s): J18.9 - PNEUMONIA, UNSPECIFIED ORGANISM SNOMED Code(s): 955098957 Comment: Comfort measures only. (2) Dementia Current Visit: No Status: Acute Priority: High Code(s): F03.90 - UNSPECIFIED DEMENTIA WITHOUT BEHAVIORAL DISTURBANCE SNOMED Code(s): 45986180 Comment: Progressive dementia and weight loss noted by her daughter. The daughter wants no artifical feedings and I think would agree to Hospice care and [facility]. Patient will go to Hospice residence 08/20. Daughter reports small amts of oral intake food and drink past 24 hrs, only 380 ml recorded 08/18, 0 ml 4/2. (3) End of life care Current Visit: Yes Status: Acute Code(s): Z51.5 - ENCOUNTER FOR PALLIATIVE CARE SNOMED Code(s): 910553325 Comment: Daughter present, seems satisfied with her care.
[2016-08-20] MEDS: Atropine 1% (ORAL/SL)* 15 ML BTL SL PRN (02:20)
[2016-08-20] MEDS: Morphine ORAL CONCENTRATE* 5 MG/0.25 ML ORAL.SYRIN SL PRN ×3 (02:21→12:37)
[2016-08-20] MEDS: Omeprazole CAP* 20 MG PO SCH (08:36)
--- NOTE | 2016-08-20 10:53 | PN ---
Subjective Date of Service: 08/20/16 Interval History: Patient more alert today, denies pain. No c/o. Objective Active Medications: Atropine Sulfate (Atropine 1% (Oral/Sl)*) 2 drop SL Q2H PRN PRN Reason: DISCOMFORT Last Admin: 08/20/16 02:20 Dose: 2 drop Lorazepam (Ativan Tab(*)) 0.5 mg SL Q2H PRN PRN Reason: ANXIETY Last Admin: 08/19/16 12:57 Dose: 0.5 mg Lorazepam (Ativan Inj*) 0.5 mg IV PUSH Q2H PRN PRN Reason: ANXIETY Last Admin: 08/18/16 01:11 Dose: 0.5 mg Morphine Sulfate (Morphine Oral Concentrate*) 5 mg SL Q30M PRN PRN Reason: PAIN Last Admin: 08/20/16 02:21 Dose: 5 mg Morphine Sulfate (Morphine Inj (Syringe)*) 2 mg IV Q1HR PRN PRN Reason: SOB/WHEEZING Last Admin: 08/19/16 01:44 Dose: 2 mg Omeprazole (Prilosec Cap*) 20 mg PO DAILY [facility] Last Admin: 08/20/16 08:36 Dose: Not Given Prochlorperazine Edisylate (Compazine Inj*) 5 mg IV Q6H PRN PRN Reason: NAUSEA/VOMITING Vital Signs 08/19/16 08/19/16 08/19/16 12:56 12:57 14:56 Respiratory 30 30 24 Rate 08/19/16 08/19/16 08/19/16 19:28 21:27 23:27 Respiratory 28 16 20 Rate 08/20/16 08/20/16 08/20/16 02:21 04:21 08:06 Respiratory 25 22 14 Rate Oxygen Devices in Use Now: Nasal Cannula Appearance: Partly up in bed. Respiratory: Symmetrical Chest Expansion and Respiratory Effort, Clear to Auscultation, Clear to Percussion Cardiovascular: NL Sounds; No Murmurs; No JVD, RRR Extremities: No Edema, No Clubbing, Cyanosis, - Skin: No Rash or Ulcers, No Nodules or Sclerosis, - Neurological: NL Sensation - Answers simple questions. No tremor. Result Diagrams: 08/17/16 04:30 08/17/16 04:30 Additional Lab and Data: Lab Results 08/16/16 08/16/16 08/16/16 Range/Units 11:00 11:00 11:00 WBC 10.4 (3.5-10.8) 10^3/ul RBC 4.28 (4.0-5.4) 10^6/ul Hgb 12.9 (12.0-16.0) g/dl Hct 38 (35-47) % MCV 89 (80-97) fL MCH 30 (27-31) pg MCHC 34 (31-36) g/dl RDW 17 H (10.5-15) % Plt Count 226 (150-450) 10^3/ul MPV 8 (7.4-10.4) um3 Neut % (Auto) 88.4 H (38-83) % Lymph % (Auto) 4.8 L (25-47) % [place] % (Auto) 5.7 (1-9) % Eos % (Auto) 0.8 (0-6) % Baso % (Auto) 0.3 (0-2) % Absolute Neuts (auto) 9.2 H (1.5-7.7) 10^3/ul Absolute Lymphs (auto) 0.5 L (1.0-4.8) 10^3/ul Absolute Monos (auto) 0.6 (0-0.8) 10^3/ul Absolute Eos (auto) 0.1 (0-0.6) 10^3/ul Absolute Basos (auto) 0 (0-0.2) 10^3/ul Absolute Nucleated RBC 0 10^3/ul Nucleated RBC % 0 INR (Anticoag Therapy) 0.87 L (0.89-1.11) APTT 23.9 L (26.0-36.3) seconds Sodium 134 (133-145) mmol/L Potassium 3.8 (3.5-5.0) mmol/L Chloride 98 L (101-111) mmol/L Carbon Dioxide 32 (22-32) mmol/L Anion Gap 4 (2-11) mmol/L BUN 21 (6-24) mg/dL Creatinine 0.71 (0.51-0.95) mg/dL Est GFR ( Amer) 101.1 (>60) Est GFR (Non-Af Amer) 78.6 (>60) BUN/Creatinine Ratio 29.6 H (8-20) Glucose 190 H (70-100) mg/dL Lactic Acid (0.5-2.0) mmol/L Calcium 9.4 (8.6-10.3) mg/dL Total Bilirubin 0.50 (0.2-1.0) mg/dL AST 14 (13-39) U/L ALT 12 (7-52) U/L Alkaline Phosphatase 87 (34-104) U/L Troponin I 0.02 (<0.04) ng/mL C-Reactive Protein 46.67 H (< 5.00) mg/L B-Natriuretic Peptide ( - 100) pg/mL Total Protein 6.7 (6.4-8.9) g/dL Albumin 3.4 (3.2-5.2) g/dL Globulin 3.3 (2-4) g/dL Albumin/Globulin Ratio 1.0 (1-3) Influenza A (Rapid) (Negative) Influenza B (Rapid) (Negative) 08/16/16 08/16/16 08/16/16 Range/Units 11:00 11:00 11:33 WBC (3.5-10.8) 10^3/ul RBC (4.0-5.4) 10^6/ul Hgb (12.0-16.0) g/dl Hct (35-47) % MCV (80-97) fL MCH (27-31) pg MCHC (31-36) g/dl RDW (10.5-15) % Plt Count (150-450) 10^3/ul MPV (7.4-10.4) um3 Neut % (Auto) (38-83) % Lymph % (Auto) (25-47) % [place] % (Auto) (1-9) % Eos % (Auto) (0-6) % Baso % (Auto) (0-2) % Absolute Neuts (auto) (1.5-7.7) 10^3/ul Absolute Lymphs (auto) (1.0-4.8) 10^3/ul Absolute Monos (auto) (0-0.8) 10^3/ul Absolute Eos (auto) (0-0.6) 10^3/ul Absolute Basos (auto) (0-0.2) 10^3/ul Absolute Nucleated RBC 10^3/ul Nucleated RBC % INR (Anticoag Therapy) (0.89-1.11) APTT (26.0-36.3) seconds Sodium (133-145) mmol/L Potassium (3.5-5.0) mmol/L Chloride (101-111) mmol/L Carbon Dioxide (22-32) mmol/L Anion Gap (2-11) mmol/L BUN (6-24) mg/dL Creatinine (0.51-0.95) mg/dL Est GFR ( Amer) (>60) Est GFR (Non-Af Amer) (>60) BUN/Creatinine Ratio (8-20) Glucose (70-100) mg/dL Lactic Acid 1.4 (0.5-2.0) mmol/L Calcium (8.6-10.3) mg/dL Total Bilirubin (0.2-1.0) mg/dL AST (13-39) U/L ALT (7-52) U/L Alkaline Phosphatase (34-104) U/L Troponin I (<0.04) ng/mL C-Reactive Protein (< 5.00) mg/L B-Natriuretic Peptide 114 H ( - 100) pg/mL Total Protein (6.4-8.9) g/dL Albumin (3.2-5.2) g/dL Globulin (2-4) g/dL Albumin/Globulin Ratio (1-3) Influenza A (Rapid) Negative (Negative) Influenza B (Rapid) Negative (Negative) Assess/Plan/Problems-Billing Assessment: - Patient Problems (1) Pneumonia Current Visit: Yes Status: Acute Code(s): J18.9 - PNEUMONIA, UNSPECIFIED ORGANISM SNOMED Code(s): 820348702 Comment: Comfort measures only. (2) Dementia Current Visit: No Status: Acute Priority: High Code(s): F03.90 - UNSPECIFIED DEMENTIA WITHOUT BEHAVIORAL DISTURBANCE SNOMED Code(s): 21833954 Comment: Progressive dementia and weight loss noted by her daughter. The daughter wants no artifical feedings and I think would agree to Hospice care and [facility]. Patient will go to Hospice residence 08/20. Daughter reports small amts of oral intake food and drink past 24 hrs, only 380 ml recorded 08/18, 0 ml 08/19. (3) End of life care Current Visit: Yes Status: Acute Code(s): Z51.5 - ENCOUNTER FOR PALLIATIVE CARE SNOMED Code(s): 624937021 Comment: Accepted at Hospice residence. Status and Disposition: Accepted at Hospice residence.
[2016-08-20] MEDS: LORazepam TAB(*) 0.5 MG SL PRN (12:36)
--- NOTE | 2016-08-20 12:56 | PN ---
"Progress Note - Progress Note Note: Confidential Drug Utilization Report Search Terms: silvia miles, 1935 Search Date: 08/20/2016 12:55:52 PM This report was requested by: Jorge Alberto Aiken | Reference #: [id number] Others' Prescriptions Patient Name: Silvia Miles Date: 1935 Address: [address] [place] [address] Sex: Female Rx Written Rx Dispensed Drug Quantity Days Supply Prescriber Name 10/27/2015 10/30/2015 oxycodone-acetaminophen 5-325 mg tab 60 15 Shannan Long MD 10/13/2015 10/13/2015 oxycodone-acetaminophen 5-325 mg tab 30 7 Shannan Long MD 09/15/2015 09/16/2015 oxycodone-acetaminophen 5-325 mg tab 60 15 Shannan Long MD 09/01/2015 09/01/2015 oxycodone-acetaminophen 5-325 mg tab 30 7 Shannan Long MD 08/24/2015 08/24/2015 oxycodone-acetaminophen 5-325 mg tab 6 2 Shannan Long MD"
--- NOTE | 2016-08-20 12:56 | PN ---
Progress Note - Progress Note Note: Time spent on discharge 50 minutes.
--- NOTE | 2016-08-21 03:58 | DS ---
DISCHARGE SUMMARY: DATE OF ADMISSION: DATE OF DISCHARGE: 08/20/16 HOSPITAL COURSE: This 81-year-old woman presented with dyspnea. The history is from the daughters. The patient has advanced dementia. The details are in the admission note. She was known to have chronic obstructive lung disease. She was started on treatment with levofloxacin, bronchodilators, and glucocorticoids. She did not do well and became less responsive and was essentially doing less. I tapered off her mirtazapine. She was made palliative care and was accepted as a hospice resident where she is being discharged to. Antibiotics and fluids were stopped. She seemed to roller picker the last couple of days, but still was taking negligible amounts by mouth. FINAL DIAGNOSES: 1. Pneumonia. 2. Dementia. 3. End-of-life care. MEDICATIONS ON TRANSFER: 1. Atropine 1% two drops sublingual every 2 hours p.r.n. 2. Lorazepam 0.5 mg sublingual every 2 hours p.r.n. 3. Morphine oral concentrate 5 mg sublingual every 30 minutes p.r.n. 4. Ondansetron ODT 4 mg b.i.d. p.r.n. 5. Bisacodyl suppository 10 mg daily p.r.n. 6. Acetaminophen 650 mg t.i.d. p.r.n. CC: Dr. Janina Robison; Dr. Long* [id number]/[facility] #: [id number] MTDD
== END 2016-08-20 14:09 | disposition hospice, home (50) | DRG 190 ==
LOC: ED 10:32 → MEDTELE 11:59
PROVIDERS: ADMIT Internal Medicine; ATTEND Internal Medicine
DX: J44.1 Chronic obstructive pulmonary disease with (acute) exacerbation (principal); J18.9 Pneumonia, unspecified organism; J96.21 Acute and chronic respiratory failure with hypoxia; K59.00 Constipation, unspecified; K21.9 Gastro-esophageal reflux disease without esophagitis; F03.90 Unspecified dementia, unspecified severity, without behavioral disturbance, psychotic disturbance, mood disturbance, and anxiety; Z66 Do not resuscitate; Z79.1 Long term (current) use of non-steroidal anti-inflammatories (NSAID); Z79.899 Other long term (current) drug therapy; Z87.891 Personal history of nicotine dependence
CPT/HCPCS: 36415; 71010; 80048; 80053; 83605; 83880; 84443; 84484; 85025; 85610; 85730; 86140; 87040; 87502; 93005; 94640; 94760; A9270-GY; J1644; J1940; J1956; J2060; J2270; J2543; J2920; J7512; J7644